=== PATIENT | male | born 1955 | race Caucasian/White ===

== ENCOUNTER 2017-07-17 12:33 | Emergency (ER) | payer OTHER ==
[2017-07-17 14:43] VITALS: RESP 18
--- NOTE | 2017-07-17 15:33 | C.PDOC ---
History Of Present Illness 62 yr old male presents to the ER for evaluation of constant left facial droop for the past 4 days. Patient denies any associated symptoms, no chest pain, SOB , nausea, vomiting, headache or dizziness. Time Seen by Provider: 07/17/17 15:04 Chief Complaint (Nursing): Weakness/Neurological Deficit History Per: Patient History/Exam Limitations: no limitations Onset/Duration Of Symptoms: Days (4) Current Symptoms Are (Timing): Still Present Past Medical History Reviewed: Historical Data, Nursing Documentation, Vital Signs Vital Signs: Last Vital Signs Temp 97.9 F 07/17/17 14:39 Pulse 105 H 07/17/17 14:39 Resp 18 07/17/17 14:39 BP 127/88 07/17/17 14:39 Pulse Ox 100 07/17/17 16:28 - Medical History PMH: HTN Family History: States: No Known Family Hx - Social History Hx Alcohol Use: No Hx Substance Use: No - Immunization History Hx Tetanus Toxoid Vaccination: No Hx Influenza Vaccination: No Hx Pneumococcal Vaccination: No Review Of Systems Except As Marked, All Systems Reviewed And Found Negative. Constitutional: Positive for: Other (+ left facial droop) Cardiovascular: Negative for: Chest Pain Respiratory: Negative for: Shortness of Breath Gastrointestinal: Negative for: Nausea, Vomiting Neurological: Negative for: Change in Speech, Headache, Dizziness Physical Exam - Physical Exam Appears: Non-toxic, No Acute Distress Skin: Warm, Dry Head: Normacephalic Oral Mucosa: Moist Cardiovascular: Rhythm Regular, No Murmur Respiratory: Normal Breath Sounds, No Rales, No Rhonchi, No Stridor, No Wheezing Gastrointestinal/Abdominal: Normal Exam, Soft, No Tenderness, No Guarding, No Rebound Extremity: Normal ROM, No Swelling Neurological/Psych: Oriented x3, Normal Speech, Normal Motor, Other (flattening of forehead, incomplete closure of left periorbital, flattening of left face) ED Course And Treatment O2 Sat by Pulse Oximetry: 100 (RA) Pulse Ox Interpretation: Normal NIHSS Stroke Scale 2 - Date/Time Evaluation Performed Date Performed: 07/17/17 When Was NIHSS Performed: Baseline - How Severe is the Stroke Level of Consciousness: 0=Alert LOC to Questions: 0=Both comments correct LOC to commands: 0=Obeys both correctly Best Gaze: 0=Normal Visual: 0=No visual loss Facial: 1=Minor asymmetry Motor Arm - Left: 0=No drift Motor Arm - Right: 0=No drift Motor Leg - Left: 0=No drift Motor Leg - Right: 0=No drift Limb Ataxia: 0=Absent Sensory: 0=Normal Best Language: 0=No aphasia Dysarthia: 0=Normal articulation Extinction & Inattention (Neglect): 0=Normal, no object Score: 1 Progress - Data Reviewed Data Reviewed: Lab, Diagnostic imaging rTPA Inclusion/Exclusion - Refusal of Treatment Patient Refused Treatment: No - Inclusion Criteria for Altepase Patient is 18 years or Older: Yes The Clinical Diagnosis of Ischemic Stroke That is Causing a Potentially Disabling Neurological Deficit: Yes Time of Onset is Well Established to be Less Than 270 Minute Before Treatment Would Begin: No Risk/Benefit Discussed With Patient/Family Member Present: No - Exclusion Criteria for Altepase Uncontrolled Hypertension at Time of Treatment (Systolic BP above 185 or Diastolic BP above 110 mmHg): No Active Internal Bleeding: No Known Bleeding Diathesis Including but Not Limited to: Platelets Below 100,000/ mm,PTT Above 40 sec After Heparin Use, Current Use of Oral Anitcoagulant With INR Greater Than 1.7 or PT Greater Than 15 secs: No Evidence of an Intracranial Hemorrhage: No Evidence of Major Acute Infarct With Signs Greater Than 1/3 MCA Territory: No Suspicion of Subarachnoid Hemorrhage on Pretreatment Evaluation Even if CT Head Negative For Hemorrhage: No - Warning to TPA With Conditions Following Conditions Weighed Against Anticipated Benefit: Yes Condition: Stroke Serevity Too Mild Medical Decision Making Medical Decision Making: PLAN: * EKG SX ONSET >72 HOURS, NO INDICATION FOR ANTIVIRAL OR STEROID USE Disposition Counseled Patient/Family Regarding: Studies Performed, Diagnosis, Need For Followup - Disposition Referrals: [facility] [Outside] [facility] [Outside] Disposition: HOME/ ROUTINE Disposition Time: 17:17 Condition: GOOD Instructions: Tristan Palsy (ED) Forms: [facility] ([place]), Work Excuse Print Language: KHMER - Clinical Impression Clinical Impression: Tristan palsy - Scribe Statement The provider has reviewed the documentation as recorded by the Jian Kan Provider Attestation: All medical record entries made by the Samibnan were at my direction and personally dictated by me. I have reviewed the chart and agree that the record accurately reflects my personal performance of the history, physical exam, medical decision making, and the department course for this patient. I have also personally directed, reviewed, and agree with the discharge instructions and disposition.
--- NOTE | 2017-07-17 17:05 | CT ---
PROCEDURE: CT HEAD WITHOUT CONTRAST. HISTORY: L FACIAL DROOP COMPARISON: None available. TECHNIQUE: Axial computed tomography images were obtained through the head/brain without intravenous contrast. Radiation dose: Total exam DLP = 1158.97 mGy-cm. This CT exam was performed using one or more of the following dose reduction techniques: Automated exposure control, adjustment of the mA and/or kV according to patient size, and/or use of iterative reconstruction technique. FINDINGS: HEMORRHAGE: No intracranial hemorrhage. BRAIN: No mass effect or edema. Intracranial atherosclerosis. Scattered periventricular and subcortical white matter hypodensities, which are nonspecific, but often seen with chronic microvascular ischemic disease. Please note that MRI with diffusion imaging is more sensitive in the detection of acute ischemic event. VENTRICLES: No hydrocephalus. CALVARIUM: Unremarkable. PARANASAL SINUSES: Unremarkable as visualized. No significant inflammatory changes. MASTOID AIR CELLS: Unremarkable as visualized. No inflammatory changes. OTHER FINDINGS: None. IMPRESSION: Nonspecific white matter changes as above.
[2017-07-17 17:41] LABS: BASO % 0.6 % (0.0-2.0); EOS # 0.1 K/uL (0.0-0.7); EOS % 1.7 % (0.0-4.0); LYMPH # 3.3 K/uL (1.0-4.3); LYMPH % 43.2 % (20.0-40.0); MEAN CELL VOLUME 82.7 fL (80.0-94.0); MEAN CORPUSCULAR HEMOGLOBIN 27.3 pg (27.0-31.0); MEAN CORPUSCULAR HGB CONC 32.9 g/dL (33.0-37.0); MEAN PLATELET VOLUME 8.3 fL (7.2-11.7); MONO # 0.6 K/uL (0.0-0.8); MONO % 8.4 % (0.0-10.0); NEUT # 3.5 K/uL (1.8-7.0); NEUT % 46.1 % (50.0-75.0); NRBC % 0.1 % (0.0-2.0); RBC 5.51 Mil/uL (4.40-5.90); RED CELL DISTRIBUTION WIDTH 13.5 % (11.5-14.5); WHITE BLOOD COUNT 7.6 K/uL (4.8-10.8)
[2017-07-17 17:42] VITALS: BP 123/82; PULSE 84; TEMP 98.3; O2SAT 99
[2017-07-17 18:03] LABS: BLOOD UREA NITROGEN 19 mg/dL (9-20); CALCIUM 8.7 mg/dl (8.6-10.4); GFR AFRICAN-AMERICAN > 60; GFR NON-AFRICAN AMERICAN > 60
--- NOTE | 2017-07-19 16:30 | CARD ---
APPROVED REPORT EKG Measurement Heart [id number] <Conclusion> Normal sinus rhythm Left axis deviation T wave abnormality, consider lateral ischemia Abnormal ECG
== END 2017-07-17 17:52 | disposition home or self-care (01) ==
LOC: C.ER 12:33
DX: G51.0 Bell's palsy (principal)

== ENCOUNTER 2018-01-13 07:56 | Observation (INO) | payer MEDICAID ==
--- NOTE | 2018-01-13 08:34 | C.PDOC ---
History Of Present Illness 62 y/o male, with past medical history of HTN, presents to ED for evaluation of shortness of breath, and chest pressure when laying back which started last night. Notes he was unable to sleep last night. He reports dyspnea on exertion for the last 2 days. He denies smoking or drinking. Denies fever, nausea, vomiting, or other complaints at this time. Time Seen by Provider: 01/13/18 08:00 Chief Complaint (Nursing): Shortness Of Breath History Per: Patient History/Exam Limitations: no limitations Onset/Duration Of Symptoms: Days Current Symptoms Are (Timing): Still Present Exacerbating Factor(s): Exertion, Laying Flat Associated Symptoms: denies: Bloody Cough, Productive Cough, Heart Racing, Leg/ Calf Pain, Dizziness, Light-headedness Recent travel outside of the [place]: No Additional History Per: Patient Past Medical History Reviewed: Historical Data, Nursing Documentation, Vital Signs Vital Signs: Last Vital Signs Temp 978 F H 01/13/18 08:06 Pulse 96 H 01/13/18 10:27 Resp 18 01/13/18 10:27 BP 127/92 H 01/13/18 10:27 Pulse Ox 100 01/13/18 10:57 - Medical History PMH: HTN Family History: States: Unknown Family Hx - Social History Hx Alcohol Use: No Hx Substance Use: No - Immunization History Hx Tetanus Toxoid Vaccination: No Hx Influenza Vaccination: No Hx Pneumococcal Vaccination: No Review Of Systems Except As Marked, All Systems Reviewed And Found Negative. Constitutional: Negative for: Fever, Chills Cardiovascular: Positive for: Chest Pain. Negative for: Palpitations, Light Headedness Respiratory: Positive for: Shortness of Breath, SOB with Excertion. Negative for: Cough Gastrointestinal: Negative for: Nausea, Vomiting, Abdominal Pain Neurological: Negative for: Headache, Dizziness Physical Exam - Physical Exam Appears: Non-toxic, No Acute Distress Skin: Normal Color, Warm, Dry Head: Atraumatic, Normacephalic Eye(s): bilateral: Normal Inspection Oral Mucosa: Moist Neck: Normal ROM, Supple Chest: Symmetrical, No Tenderness Cardiovascular: Rhythm Regular, No Murmur Respiratory: Normal Breath Sounds, No Rales, No Rhonchi, No Wheezing Gastrointestinal/Abdominal: Soft, No Tenderness, No Distention Extremity: Normal ROM, Pedal Edema (+1 pitting edema bilaterally), No Deformity Neurological/Psych: Oriented x3, Normal Speech ED Course And Treatment - Laboratory Results Result Diagrams: 01/13/18 09:00 01/13/18 09:00 O2 Sat by Pulse Oximetry: 100 (RA) Pulse Ox Interpretation: Normal Medical Decision Making Medical Decision Making: Plan: Blood work EKG CXR Chest CT Aspirin, Lasix Disposition Discussed With Dr.: Maximo Solis Counseled Patient/Family Regarding: Studies Performed, Diagnosis - Disposition Disposition: HOSPITALIZED Disposition Time: 10:06 Condition: GUARDED - Clinical Impression Clinical Impression: Dyspnea, Chronic congestive heart failure, Orthopnea, TARANGO (dyspnea on exertion) - Scribe Statement The provider has reviewed the documentation as recorded by the Scribe KP All medical record entries made by the Scribe were at my direction and personally dictated by me. I have reviewed the chart and agree that the record accurately reflects my personal performance of the history, physical exam, medical decision making, and the department course for this patient. I have also personally directed, reviewed, and agree with the discharge instructions and disposition. Decision To Admit - Pt Status Changed To: Hospital Disposition Of: Observation - . Bed Request Type: Telemetry Admitting Physician: Maximo Solis Patient Diagnosis: Dyspnea, Chronic congestive heart failure, Orthopnea, TARANGO (dyspnea on exertion)
[2018-01-13 09:14] LABS: BASO % 0.6 % (0.0-2.0); EOS # 0.1 K/uL (0.0-0.7); EOS % 1.3 % (0.0-4.0); HEMOGLOBIN 14.5 g/dL (12.0-18.0); LYMPH # 2.1 K/uL (1.0-4.3); LYMPH % 35.7 % (20.0-40.0); MEAN CELL VOLUME 83.6 fL (80.0-94.0); MEAN CORPUSCULAR HEMOGLOBIN 27.6 pg (27.0-31.0); MEAN PLATELET VOLUME 8.8 fL (7.2-11.7); MONO # 0.6 K/uL (0.0-0.8); MONO % 9.4 % (0.0-10.0); NEUT # 3.2 K/uL (1.8-7.0); NRBC % 0.1 % (0.0-2.0); RBC 5.24 Mil/uL (4.40-5.90); RED CELL DISTRIBUTION WIDTH 14.1 % (11.5-14.5)
[2018-01-13 09:27] LABS: ALB/GLOB RATIO 1.2 (1.0-2.1); ALBUMIN 3.6 g/dL (3.5-5.0); ALT/SGPT 93 U/L (21-72); AST/SGOT 72 U/L (17-59); BLOOD UREA NITROGEN 20 mg/dL (9-20); CALCIUM 9.2 mg/dl (8.6-10.4); GFR AFRICAN-AMERICAN > 60; GFR NON-AFRICAN AMERICAN > 60
[2018-01-13 09:33] LABS: B-TYPE NATRIURETIC PEPTIDE 1500 pg/mL (0-900)
[2018-01-13 10:10] LABS: BARBITURATES, UR NEGATIVE (NEGATIVE); BENZODIAZEPINES, UR NEGATIVE (NEGATIVE); OPIATES, UR NEGATIVE (NEGATIVE); PHENCYCLIDINE, UR NEGATIVE (NEGATIVE)
[2018-01-13] MEDS ORDERED: Iodixanol 320 mg/ml 150 ml Bottle IV ONE (11:19)
--- NOTE | 2018-01-13 12:08 | CT ---
Date of service: 01/13/2018 PROCEDURE: CT Chest with contrast HISTORY: sob, abnormal cxr COMPARISON: None available. TECHNIQUE: Contiguous axial images were obtained through the chest with intravenous contrast enhancement. Sagittal and coronal reconstructions were performed. IV contrast: 100 mL Visipaque 320 intravenously. Radiation dose (DLP): 314.6 mGy-cm. This CT exam was performed using one or more of the following dose reduction techniques: Automated exposure control, adjustment of the mA and/or kV according to patient size, and/or use of iterative reconstruction technique. FINDINGS: LUNGS: Moderate pulmonary vascular congestion is noted. Partial collapse of the lower lobes due to pleural effusions is also noted. There is pleural base opacity at the anterior aspect of the right lung upper lobe noted associated with adjacent pleural thickening. MEDIASTINUM: Unremarkable thoracic aorta. No aneurysm or dissection. The heart is moderately enlarged. The main pulmonary artery is mildly enlarged. Mild precarinal and right paratracheal lymphadenopathy seen. Mildly dilated esophagus demonstrate mild wall thickening. PLEURA: Moderate right and small left pleural effusion is noted. BONES: No fracture. No destructive lesion. UPPER ABDOMEN: Grossly unremarkable. OTHER FINDINGS: None. IMPRESSION: Cardiomegaly. Moderate right and small left pleural effusions. Moderate pulmonary vascular congestion. Small pleural base opacity at the anterior aspect of the right lung upper lobe may represent a sequela of prior infection or inflammatory process. The possibility of acute pathology is less likely but not totally excluded. Follow-up study is recommended. Mild right-sided mediastinal lymphadenopathy.
[2018-01-13] MEDS: Metoprolol Succinate 12.5 mg XL Tab PO SCH (14:57)
--- NOTE | 2018-01-13 19:55 | CP.PCM.CON ---
History of Present Illness - History of Present Illness History of Present Illness: 62 year old lamar with type II DM, HTN presented with atypical pain, SOB, TARANGO admitted for elevated BNP, EKG sinus, lateral changes, VPB. neg TNI, f/u with Echo, no OH, needs EST as out pt, treatment for CHF, ? LV diastolic V/S systolic, acute over chronic Review of Systems - Review of Systems Systems not reviewed;Unavailable: Acuity of Condition - Constitutional Constitutional: Anorexia, Weakness - EENT Eyes: absent: Discharge Ears: absent: Ear Discharge, Dizziness Nose/Mouth/Throat: absent: Epistaxis - Cardiovascular Cardiovascular: Dyspnea, Edema, Palpitations. absent: Acrocyanosis, Chest Pain , Claudication, Diaphoresis, Syncope - Respiratory Respiratory: Dyspnea. absent: Cough, Hemoptysis - Gastrointestinal Gastrointestinal: absent: Abdominal Pain, Diarrhea, Nausea, Vomiting - Genitourinary Genitourinary: absent: Change in Urinary Stream Past Patient History - Past Social History Smoking Status: Never Smoked - CARDIAC Hx Hypertension: Yes - ENDOCRINE/METABOLIC Hx Diabetes Mellitus Type 1: Yes - PSYCHIATRIC Hx Substance Use: No - SURGICAL HISTORY Hx Surgeries: No - ANESTHESIA Hx Anesthesia: No Hx Anesthesia Reactions: No Meds Home Medications: Home Medication List Medication Instructions Recorded Confirmed Type Furosemide [Lasix] 40 mg PO DAILY #30 tab 01/15/18 Rx Lisinopril [Zestril] 2.5 mg PO DAILY #30 tab 01/15/18 Rx Metoprolol Succinate XL [Toprol XL] 12.5 mg PO DAILY #30 tab 01/15/18 Rx Rosuvastatin Calcium [Crestor] 5 mg PO HS #30 tab 01/15/18 Rx metFORMIN [glucOPHAGE] 500 mg PO BID #60 tab 01/15/18 Rx Allergies/Adverse Reactions: Allergies Allergy/AdvReac Type Severity Reaction Status Date / Time No Known Allergies Allergy Verified 01/13/18 08:08 - Medications Medications: Current Medications Enoxaparin Sodium (Lovenox) 40 mg SC DAILY [facility] Furosemide (Lasix) 40 mg IVP DAILY [facility] Lisinopril (Zestril) 2.5 mg PO DAILY [facility] Last Admin: 01/13/18 14:58 Dose: 2.5 mg Metformin HCl (Glucophage) 500 mg PO BID [facility] Last Admin: 01/13/18 18:08 Dose: 500 mg Metoprolol Succinate (Toprol Xl) 12.5 mg PO DAILY [facility] Last Admin: 01/13/18 14:57 Dose: 12.5 mg Rosuvastatin Calcium (Crestor) 5 mg PO [facility] Physical Exam - Constitutional Appears: Non-toxic - Head Exam Head Exam: ATRAUMATIC - Eye Exam Eye Exam: EOMI - ENT Exam ENT Exam: Mucous Membranes Moist - Neck Exam Neck exam: Negative for: Lymphadenopathy, Thyromegaly - Respiratory Exam Respiratory Exam: Clear to Auscultation Bilateral. absent: Rales - Cardiovascular Exam Cardiovascular Exam: REGULAR RHYTHM, Systolic Murmur - GI/Abdominal Exam GI & Abdominal Exam: Normal Bowel Sounds. absent: Organomegaly - Rectal Exam Rectal Exam: Deferred - Extremities Exam Extremities exam: Positive for: normal capillary refill. Negative for: calf tenderness - Neurological Exam Neurological exam: Alert, Oriented x3 - Psychiatric Exam Psychiatric exam: Normal Mood Results - Vital Signs Recent Vital Signs: Last Vital Signs Temp 97.7 F 01/13/18 19:15 Pulse 98 H 01/13/18 19:15 Resp 18 01/13/18 19:15 BP 122/91 H 01/13/18 19:15 Pulse Ox 99 01/13/18 19:15 - Labs Result Diagrams: 01/13/18 09:00 01/13/18 09:00 Labs: Laboratory Results - last 24 hr 01/13/18 01/13/18 01/13/18 09:00 09:00 09:00 WBC 6.0 RBC 5.24 Hgb 14.5 Hct 43.9 MCV 83.6 MCH 27.6 MCHC 33.0 RDW 14.1 Plt Count 222 MPV 8.8 Neut % (Auto) 53.0 Lymph % (Auto) 35.7 Rains % (Auto) 9.4 Eos % (Auto) 1.3 Baso % (Auto) 0.6 Neut # (Auto) 3.2 Lymph # (Auto) 2.1 Rains # (Auto) 0.6 Eos # (Auto) 0.1 Baso # (Auto) 0.0 D-Dimer, Quantitative < 200 Sodium 141 Potassium 4.2 Chloride 105 Carbon Dioxide 24 Anion Gap 17 BUN 20 Creatinine 1.0 Est GFR ( Amer) > 60 Est GFR (Non-Af Amer) > 60 Random Glucose 187 H Calcium 9.2 Total Bilirubin 0.4 AST 72 H ALT 93 H Alkaline Phosphatase 84 Troponin I 0.0300 NT-Pro-B Natriuret Pep 1500 H Total Protein 6.7 Albumin 3.6 Globulin 3.0 Albumin/Globulin Ratio 1.2 Urine Opiates Screen Urine Methadone Screen Ur Barbiturates Screen Ur Phencyclidine Scrn Ur Amphetamines Screen U Benzodiazepines Scrn U Oth Cocaine Metabols U Cannabinoids Screen 01/13/18 01/13/18 09:34 15:58 WBC RBC Hgb Hct MCV MCH MCHC RDW Plt Count MPV Neut % (Auto) Lymph % (Auto) Rains % (Auto) Eos % (Auto) Baso % (Auto) Neut # (Auto) Lymph # (Auto) Rains # (Auto) Eos # (Auto) Baso # (Auto) D-Dimer, Quantitative Sodium Potassium Chloride Carbon Dioxide Anion Gap BUN Creatinine Est GFR ( Amer) Est GFR (Non-Af Amer) Random Glucose Calcium Total Bilirubin AST ALT Alkaline Phosphatase Troponin I 0.0250 NT-Pro-B Natriuret Pep Total Protein Albumin Globulin Albumin/Globulin Ratio Urine Opiates Screen Negative Urine Methadone Screen Negative Ur Barbiturates Screen Negative Ur Phencyclidine Scrn Negative Ur Amphetamines Screen Negative U Benzodiazepines Scrn Negative U Oth Cocaine Metabols Negative U Cannabinoids Screen Negative Assessment & Plan (1) New onset of congestive heart failure Status: Acute (2) Type 2 diabetes mellitus Status: Acute
--- NOTE | 2018-01-13 21:20 | RAD ---
Date of service: 01/13/2018 PROCEDURE: CHEST RADIOGRAPH, 1 VIEW HISTORY: chest pain COMPARISON: None available. FINDINGS: LUNGS: [id number] pulmonary vascular congestion is noted. PLEURA: No pneumothorax or pleural fluid seen. CARDIOVASCULAR: Cardiomegaly is noted. OSSEOUS STRUCTURES: No significant abnormalities. VISUALIZED UPPER ABDOMEN: Normal. OTHER FINDINGS: None. IMPRESSION: Cardiomegaly and moderate pulmonary vascular congestion.
[2018-01-14] MEDS: Metoprolol Succinate 12.5 mg XL Tab PO SCH (10:09)
[2018-01-14] MEDS: Enoxaparin 40 mg Syringe SC SCH (10:09)
[2018-01-14] MEDS ORDERED: Enoxaparin 40 mg Syringe SC SCH (11:15)
--- NOTE | 2018-01-14 21:54 | CP.PCM.HP ---
History of Present Illness - History of Present Illness History of Present Illness: CC: Chest pain 62 year old [place] male with type II DM, HTN, non smoker complaint with diet , medication and follow up presented with atypical pain, chest pain is prseent since 3 weeks, substernal presssure like, worse with exertyion, not associated with dyspnea, orthopnea ,SOB, TARANGO admitted for elevated BNP, EKG sinus, lateral changes, VPB. neg TNI, f/u with Echo, no SC, needs EST as out pt, treatment for CHF, ? LV diastolic, acute over chronic Present on Admission - Present on Admission Any Indicators Present on Admission: Yes Review of Systems - Review of Systems Systems not reviewed;Unavailable: Acuity of Condition - Constitutional Constitutional: Fatigue, Malaise, Weakness - EENT Eyes: absent: As Per HPI, Blind Spots, Blurred Vision, Change in Vision, Decreased Night Vision, Diplopia, Discharge, Dry Eye, Exophthalmos, Floaters, Irritation, Itchy Eyes, Loss of Peripheral Vision, Pain, Photophobia, Requires Corrective Lenses, Sees Flashes, Spots in Vision, Tunnel Vision, Other Visual Disturbances, Loss of Vision, Other Ears: absent: As Per HPI, Decreased Hearing, Ear Discharge, Ear Pain, Tinnitus, Abnormal Hearing, Disequilibrium, Dizziness, Other Nose/Mouth/Throat: absent: As Per HPI, Epistaxis, Nasal Congestion, Nasal Discharge, Nasal Obstruction, Nasal Trauma, Nose Pain, Post Nasal Drip, Sinus Pain, Sinus Pressure, Bleeding Gums, Change in Voice, Dental Pain, Dry Mouth, Dysphagia, Halitosis, Hoarsness, Lip Swelling, Mouth Lesions, Mouth Pain, Odynophagia, Sore Throat, Throat Swelling, Tongue Swelling, Facial Pain, Neck Pain, Neck Mass, Other - Cardiovascular Cardiovascular: Chest Pain, Chest Pain with Activity, Dyspnea. absent: As Per HPI, Acrocyanosis, Chest Pain at Rest, Claudication, Diaphoresis, Dyspnea on Exertion, Edema, Irregular Heart Rhythm, Pain Radiating to Arm/Neck/Jaw, Leg Edema, Leg Ulcers, Lightheadedness, Orthopnea, Palpitations, Paroxysmal Nocturnal Dyspnea, Pedal Edema, Radiating Pain, Rapid Heart Rate, Slow Heart Rate, Syncope, Other - Respiratory Respiratory: Cough, Dyspnea, Dyspnea on Exertion, Chest Congestion - Gastrointestinal Gastrointestinal: absent: As Per HPI, Abdominal Pain, Belching, Bloating, Change in Bowel Habits, Change in Stool Character, Coffee Ground Emesis, Constipation, Cramping, Diarrhea, Dyspepsia, Dysphagia, Early Satiety, Excessive Flatus, Fecal Incontinence, Heartburn, Hematemesis, Hematochezia, Loose Stools, Melena, Nausea, Odynophagia, Temesmus, Vomiting, Other - Genitourinary Genitourinary: absent: As Per HPI, Change in Urinary Stream, Difficulty Urinating, Dysuria, Flank Pain, Hematuria, Pyuria, Nocturia, Urinary Incontinence, Urinary Frequency, Urinary Hesitance, Urinary Urgency, Voiding Freq/Small Amts, Freq UTI, Hx Renal/Bladder Calculi, Hx /Renal Surgery, Bladder Distension, Other Past Patient History - Past Social History Smoking Status: Never Smoked - CARDIAC Hx Hypertension: Yes - ENDOCRINE/METABOLIC Hx Diabetes Mellitus Type 1: Yes - PSYCHIATRIC Hx Substance Use: No - SURGICAL HISTORY Hx Surgeries: No - ANESTHESIA Hx Anesthesia: No Hx Anesthesia Reactions: No Meds Allergies/Adverse Reactions: Allergies Allergy/AdvReac Type Severity Reaction Status Date / Time No Known Allergies Allergy Verified 01/13/18 08:08 Physical Exam - Constitutional Appears: No Acute Distress - Head Exam Head Exam: ATRAUMATIC, NORMAL INSPECTION, NORMOCEPHALIC - Eye Exam Eye Exam: EOMI, Normal appearance, PERRL Pupil Exam: NORMAL ACCOMODATION, PERRL - ENT Exam ENT Exam: Mucous Membranes Moist, Normal Exam - Respiratory Exam Respiratory Exam: Decreased Breath Sounds, Rales, NORMAL BREATHING PATTERN - Cardiovascular Exam Cardiovascular Exam: REGULAR RHYTHM - GI/Abdominal Exam GI & Abdominal Exam: Normal Bowel Sounds, Soft. absent: Tenderness Results - Vital Signs Recent Vital Signs: Last Vital Signs Temp 97.5 F L 01/14/18 15:00 Pulse 90 01/14/18 15:00 Resp 20 01/14/18 15:00 BP 114/77 01/14/18 15:00 Pulse Ox 95 01/14/18 15:00 - Labs Result Diagrams: 01/13/18 09:00 01/13/18 09:00 Labs: Laboratory Results - last 24 hr 01/14/18 00:27 Troponin I 0.0340 Assessment & Plan (1) Chest pain Assessment and Plan: WORSE ON EXERTION RE;EIVED BY REST Status: Acute (2) Type 2 diabetes mellitus Status: Acute (3) HTN (hypertension) Status: Acute (4) New onset of congestive heart failure Status: Acute
--- NOTE | 2018-01-14 22:04 | CP.PCM.PN ---
Subjective - Date & Time of Evaluation Date of Evaluation: 01/14/18 Time of Evaluation: 19:40 - Subjective Subjective: pT SEEN AND EXAMINED AT BEDSIDE Objective - Vital Signs/Intake and Output Vital Signs (last 24 hours): Temp Pulse Resp BP Pulse Ox 97.5 F L 90 20 114/77 95 01/14/18 15:00 01/14/18 15:00 01/14/18 15:00 01/14/18 15:00 01/14/18 15:00 - Medications Medications: Current Medications Enoxaparin Sodium (Lovenox) 40 mg SC DAILY [facility] Last Admin: 01/14/18 10:09 Dose: 40 mg Furosemide (Lasix) 40 mg IVP DAILY [facility] Last Admin: 01/14/18 10:08 Dose: 40 mg Lisinopril (Zestril) 2.5 mg PO DAILY [facility] Last Admin: 01/14/18 10:09 Dose: 2.5 mg Metformin HCl (Glucophage) 500 mg PO BID [facility] Last Admin: 01/14/18 17:34 Dose: 500 mg Metoprolol Succinate (Toprol Xl) 12.5 mg PO DAILY [facility] Last Admin: 01/14/18 10:09 Dose: 12.5 mg Rosuvastatin Calcium (Crestor) 5 mg PO HS [facility] Last Admin: 01/14/18 21:28 Dose: 5 mg - Labs Labs: 01/13/18 09:00 01/13/18 09:00 Assessment and Plan (1) Chest pain Status: Acute (2) Type 2 diabetes mellitus Status: Acute (3) HTN (hypertension) Status: Acute (4) New onset of congestive heart failure Status: Acute
[2018-01-15] MEDS: Metoprolol Succinate 12.5 mg XL Tab PO SCH (10:03)
[2018-01-15] MEDS: Enoxaparin 40 mg Syringe SC SCH (10:03)
--- NOTE | 2018-01-15 12:45 | CP.PCM.PN ---
Subjective - Date & Time of Evaluation Date of Evaluation: 01/15/18 Time of Evaluation: 13:00 - Subjective Subjective: Less shortness of breath, echo with ischemic cardiomyopathy and ejection fraction less than 20%. He needs beta jw HEVER inhibitor and Lasix in addition to ischemic workup that can be done as outpatient, probably start with stress test. Significant moderate mitral regurgitation and moderate aortic insufficiency Objective - Vital Signs/Intake and Output Vital Signs (last 24 hours): Temp Pulse Resp BP Pulse Ox 97.6 F 84 18 123/85 100 01/15/18 07:15 01/15/18 07:45 01/15/18 07:15 01/15/18 10:04 01/15/18 07:15 Intake and Output: 01/15/18 01/15/18 06:59 18:59 Intake Total 10 Balance 10 - Medications Medications: Current Medications Enoxaparin Sodium (Lovenox) 40 mg SC DAILY [facility] Last Admin: 01/15/18 10:03 Dose: 40 mg Furosemide (Lasix) 40 mg IVP DAILY [facility] Last Admin: 01/15/18 10:04 Dose: 40 mg Lisinopril (Zestril) 2.5 mg PO DAILY [facility] Last Admin: 01/15/18 10:03 Dose: 2.5 mg Metformin HCl (Glucophage) 500 mg PO BID [facility] Last Admin: 01/15/18 10:02 Dose: 500 mg Metoprolol Succinate (Toprol Xl) 12.5 mg PO DAILY [facility] Last Admin: 01/15/18 10:03 Dose: 12.5 mg Rosuvastatin Calcium (Crestor) 5 mg PO HS [facility] Last Admin: 01/14/18 21:28 Dose: 5 mg - Labs Labs: 01/13/18 09:00 01/13/18 09:00 - Constitutional Appears: Non-toxic - Head Exam Head Exam: ATRAUMATIC - Eye Exam Eye Exam: EOMI - ENT Exam ENT Exam: Mucous Membranes Moist - Neck Exam Neck Exam: absent: Lymphadenopathy, Thyromegaly - Respiratory Exam Respiratory Exam: Clear to Ausculation Bilateral. absent: Rales - Cardiovascular Exam Cardiovascular Exam: REGULAR RHYTHM, Murmur - GI/Abdominal Exam GI & Abdominal Exam: Normal Bowel Sounds. absent: Organomegaly - Rectal Exam Rectal Exam: Deferred - Extremities Exam Extremities Exam: Normal Capillary Refill. absent: Calf Tenderness - Neurological Exam Neurological Exam: Alert, Oriented x3 - Psychiatric Exam Psychiatric exam: Normal Mood - Skin Skin Exam: Dry Assessment and Plan (1) New onset of congestive heart failure Assessment & Plan: acute LV systolic failure Status: Acute (2) Type 2 diabetes mellitus Status: Acute
[2018-01-15 15:58] VITALS: BP 106/60; RESP 20; TEMP 97.8; O2SAT 99
--- NOTE | 2018-01-15 16:36 | CP.PCM.PN ---
Subjective - Date & Time of Evaluation Date of Evaluation: 01/15/18 Time of Evaluation: 16:36 - Subjective Subjective: - SEGUIMIENTO CON EL DR. DONOVAN EN LA OFICINA EN EL PLAZO DE 5-7 DENNY --- LLAME A LA OFICINA PARA OWEN DESIGNADO EL HORARIO. -CONTINUAR LOS MEDICAMENTOS EXACTAMENTE EUNICE SE PRESCRIBE: 1) LASIX 40 MG (PLDORA DE AGUA) --- PHILIP 1 TABLETA POR LA BOCA HARINI VEZ AL DA. 2) LISINOPRIL 2.5 MG (PARA HAND CORAZN) --- TOME 1 TABLETA POR BOCA HARINI VEZ AL D A. 3) METOPROLOL XL 12.5 MG (PARA HAND CORAZN) --- TOME 1 TABLETA POR BOCA HARINI VEZ AL DA. 4) METFORMIN 500 MG (PARA HAND DIABETES) --- TOME 1 TABLETA POR LA BOCA DOS VECES AL DA (ANTES DEL DESAYUNO Y ANTES DE LA DELIVERY CREW WORKER). 5) CRESTOR 5 MG (PARA HAND COLESTEROL) --- PHILIP 1 TABLETA POR LA BOCA A LA HORA. DARIAN HARINI VIRAJ PARA GUILHERME EL DR. FIGUEROA (CARDILOGO) EN LA OFICINA DENTRO DE 5-7 D --- LLAME A LA OFICINA PARA OWEN DESIGNADO EL HORARIO. -FOLLOW UP WITH DR. DONOVAN IN THE OFFICE WITHIN 5-7 DAYS---CALL THE OFFICE FOR APPOINTMENT TIME. -CONTINUE MEDICATIONS EXACTLY PRESCRIBED: 1) LASIX 40 MG (WATER PILL)---TAKE 1 TABLET BY MOUTH ONCE A DAY. 2) LISINOPRIL 2.5 MG (FOR YOUR HEART)---TAKE 1 TABLET BY MOUTH ONCE A DAY. 3) METOPROLOL XL 12.5 MG (FOR YOUR HEART)---TAKE 1 TABLET BY MOUTH ONCE A DAY. 4) METFORMIN 500 MG (FOR YOUR DIABETES)---TAKE 1 TABLET BY MOUTH TWICE A DAY ( BEFORE BREAKFAST AND BEFORE DINNER). 5) CRESTOR 5 MG (FOR YOUR CHOLESTEROL)---TAKE 1 TABLET BY MOUTH AT BEDTIME. -MAKE AN APPOINTMENT TO SEE DR. FIGUEROA (SOFTWARE TEST AUTOMATION ENGINEER) IN THE OFFICE WITHIN 5-7 DAYS---CALL THE OFFICE FOR APPOINTMENT TIME. Objective - Vital Signs/Intake and Output Vital Signs (last 24 hours): Temp Pulse Resp BP Pulse Ox 97.8 F 87 20 106/60 99 01/15/18 15:00 01/15/18 15:00 01/15/18 15:00 01/15/18 15:00 01/15/18 15:00 Intake and Output: 01/15/18 01/15/18 06:59 18:59 Intake Total 10 Balance 10 - Medications Medications: Current Medications Enoxaparin Sodium (Lovenox) 40 mg SC DAILY [facility] Last Admin: 01/15/18 10:03 Dose: 40 mg Furosemide (Lasix) 40 mg IVP DAILY [facility] Last Admin: 01/15/18 10:04 Dose: 40 mg Lisinopril (Zestril) 2.5 mg PO DAILY [facility] Last Admin: 01/15/18 10:03 Dose: 2.5 mg Metformin HCl (Glucophage) 500 mg PO BID [facility] Last Admin: 01/15/18 10:02 Dose: 500 mg Metoprolol Succinate (Toprol Xl) 12.5 mg PO DAILY [facility] Last Admin: 01/15/18 10:03 Dose: 12.5 mg Rosuvastatin Calcium (Crestor) 5 mg PO HS [facility] Last Admin: 01/14/18 21:28 Dose: 5 mg - Labs Labs: 01/13/18 09:00 01/13/18 09:00
[2018-01-15 16:59] VITALS: PULSE 84
--- NOTE | 2018-01-15 20:47 | CARD ---
APPROVED REPORT Date of service: 01/15/2018 EXAM: Two-dimensional and M-mode echocardiogram with Doppler and color Doppler. INDICATION Dyspnea Chest Pain Congestive Heart Failure RISK FACTORS Hypertension Diabetes 2D DIMENSIONS IVSd0.8 (0.7-1.1cm)LVDd6.8 (3.9-5.9cm) PWd0.8 (0.7-1.1cm)LVDs6.2 (2.5-4.0cm) FS (%) 9.6 %LVEF (%)20.4 (>50%) M-Mode DIMENSIONS RVDd1.91 (2.1-3.2cm)Left Atrium (MM)4.92 (2.5-4.0cm) IVSd0.73 (0.7-1.1cm)Aortic Root3.29 (2.2-3.7cm) LVDd6.94 (4.0-5.6cm)Aortic Cusp Exc.1.97 (1.5-2.0cm) PWd0.69 (0.7-1.1cm)FS (%) 11 % LVDs6.21 (2.0-3.8cm)LVEF (%)22 (>50%) Aortic Valve AI P 1/2 [id number] Mitral Valve MV E Yiqiuypd302.2cm/sMV A Zlhgocjw936.3cm/sE/A ratio1.3 PISA0.98 cm TDI E/Lateral E'0.0E/Medial E'0.0 Tricuspid Valve TR Peak [id number]/sTR Peak Gr.[id number] LEFT VENTRICLE The Left Ventricle is moderately dilated. There is normal left ventricular wall thickness. Left ventricle systolic function is severely impaired. The Ejection Fraction is 15-20%. There is global hypokinesis of the left ventricle. There is severe hypokinesis in the mid-inferolateral wall. Transmitral Doppler flow pattern is Grade II-pseudonormal filling dynamics. elevated LVEDP There is no ventricular septal defect visualized. RIGHT VENTRICLE The right ventricle is normal size. The right ventricular systolic function is normal. ATRIA The left atrium is moderately dilated. The right atrium size is normal. AORTIC VALVE The aortic valve is mildly sclerotic. The aortic valve is tri-cuspid. There is moderate aortic regurgitation. There is no aortic valvular stenosis. MITRAL VALVE The mitral valve leaflets are thickened. There is no evidence of mitral valve prolapse. Mitral regurgitation is moderate. ERO 0.4 cm2 TRICUSPID VALVE The tricuspid valve is normal in structure. There is trace to mild tricuspid regurgitation. Right ventricular systolic pressure is estimated at 30-40 mmHg. There is mild pulmonary hypertension. PULMONIC VALVE The pulmonic valve is not well visualized. There is trace to mild pulmonic valvular regurgitation. GREAT VESSELS The aortic root is normal in size. The ascending aorta is Mildly dilated. 3.9 cm The IVC is normal in size and collapses >50% with inspiration. PERICARDIAL EFFUSION There is no pericardial effusion. <Conclusion> Left ventricle systolic function is severely impaired. The Ejection Fraction is 15-20%. Transmitral Doppler flow pattern is Grade II-pseudonormal filling dynamics. elevated LVEDP There is moderate aortic regurgitation. Mitral regurgitation is moderate. ERO 0.4 cm2 There is mild pulmonary hypertension.
--- NOTE | 2018-01-15 20:49 | CP.PCM.DIS ---
Provider - Provider Date of Admission: 01/13/18 10:08 Attending physician: Maximo Donovan MD Diagnosis - Discharge Diagnosis (1) Chest pain Status: Acute (2) Type 2 diabetes mellitus Status: Acute (3) HTN (hypertension) Status: Acute (4) New onset of congestive heart failure Status: Acute Hospital Course - Lab Results Lab Results: Most Recent Lab Values WBC 6.0 K/uL (4.8-10.8) 01/13/18 09:00 RBC 5.24 Mil/uL (4.40-5.90) 01/13/18 09:00 Hgb 14.5 g/dL (12.0-18.0) 01/13/18 09:00 Hct 43.9 % (35.0-51.0) 01/13/18 09:00 MCV 83.6 fL (80.0-94.0) 01/13/18 09:00 MCH 27.6 pg (27.0-31.0) 01/13/18 09:00 MCHC 33.0 g/dL (33.0-37.0) 01/13/18 09:00 RDW 14.1 % (11.5-14.5) 01/13/18 09:00 Plt Count 222 K/uL (130-400) 01/13/18 09:00 MPV 8.8 fL (7.2-11.7) 01/13/18 09:00 Neut % (Auto) 53.0 % (50.0-75.0) 01/13/18 09:00 Lymph % (Auto) 35.7 % (20.0-40.0) 01/13/18 09:00 Grand % (Auto) 9.4 % (0.0-10.0) 01/13/18 09:00 Eos % (Auto) 1.3 % (0.0-4.0) 01/13/18 09:00 Baso % (Auto) 0.6 % (0.0-2.0) 01/13/18 09:00 Neut # (Auto) 3.2 K/uL (1.8-7.0) 01/13/18 09:00 Lymph # (Auto) 2.1 K/uL (1.0-4.3) 01/13/18 09:00 Grand # (Auto) 0.6 K/uL (0.0-0.8) 01/13/18 09:00 Eos # (Auto) 0.1 K/uL (0.0-0.7) 01/13/18 09:00 Baso # (Auto) 0.0 K/uL (0.0-0.2) 01/13/18 09:00 D-Dimer, Quantitative < 200 ng/mlDDU (0-243) 01/13/18 09:00 Sodium 141 mmol/L (132-148) 01/13/18 09:00 Potassium 4.2 mmol/L (3.6-5.2) 01/13/18 09:00 Chloride 105 mmol/L (98-107) 01/13/18 09:00 Carbon Dioxide 24 mmol/L (22-30) 01/13/18 09:00 Anion Gap 17 (10-20) 01/13/18 09:00 BUN 20 mg/dL (9-20) 01/13/18 09:00 Creatinine 1.0 mg/dL (0.8-1.5) 01/13/18 09:00 Est GFR ( Amer) > 60 01/13/18 09:00 Est GFR (Non-Af Amer) > 60 01/13/18 09:00 POC Glucose (mg/dL) 137 mg/dL (65-110) H 01/15/18 16:22 Random Glucose 187 mg/dL (75-110) H 01/13/18 09:00 Calcium 9.2 mg/dl (8.6-10.4) 01/13/18 09:00 Total Bilirubin 0.4 mg/dL (0.2-1.3) 01/13/18 09:00 AST 72 U/L (17-59) H 01/13/18 09:00 ALT 93 U/L (21-72) H 01/13/18 09:00 Alkaline Phosphatase 84 U/L (38-126) 01/13/18 09:00 Troponin I 0.0340 ng/mL (0.00-0.120) 01/14/18 00:27 NT-Pro-B Natriuret Pep 1500 pg/mL (0-900) H 01/13/18 09:00 Total Protein 6.7 g/dL (6.3-8.3) 01/13/18 09:00 Albumin 3.6 g/dL (3.5-5.0) 01/13/18 09:00 Globulin 3.0 gm/dL (2.2-3.9) 01/13/18 09:00 Albumin/Globulin Ratio 1.2 (1.0-2.1) 01/13/18 09:00 Urine Opiates Screen Negative (NEGATIVE) 01/13/18 09:34 Urine Methadone Screen Negative (NEGATIVE) 01/13/18 09:34 Ur Barbiturates Screen Negative (NEGATIVE) 01/13/18 09:34 Ur Phencyclidine Scrn Negative (NEGATIVE) 01/13/18 09:34 Ur Amphetamines Screen Negative (NEGATIVE) 01/13/18 09:34 U Benzodiazepines Scrn Negative (NEGATIVE) 01/13/18 09:34 U Oth Cocaine Metabols Negative (NEGATIVE) 01/13/18 09:34 U Cannabinoids Screen Negative (NEGATIVE) 01/13/18 09:34 Discharge Exam - Head Exam Head Exam: ATRAUMATIC Discharge Plan - Discharge Medications Prescriptions: metFORMIN [glucOPHAGE] 500 mg PO BID 60 Days tab Furosemide [Lasix] 40 mg PO DAILY 30 Days tab Lisinopril 2.5 mg PO DAILY 30 Days tab Rosuvastatin Calcium 5 mg PO DAILY 30 Days tablet Metoprolol Succinate XL [Toprol XL] 12.5 mg PO DAILY 30 Days tab - Follow Up Plan Condition: GUARDED Disposition: HOME/ ROUTINE Instructions: Heart Healthy Diet, Heart Failure, Adult (DC), Shortness of Breath (Dyspnea) (DC), Chest Pain (DC), Furosemide, Lisinopril, Metformin, Metoprolol, Rosuvastatin Additional Instructions: - SEGUIMIENTO CON EL DR. DONOVAN EN LA OFICINA EN EL PLAZO DE 5-7 DENNY --- LLAME A LA OFICINA PARA OWEN DESIGNADO EL HORARIO. -CONTINUAR LOS MEDICAMENTOS EXACTAMENTE EUNICE SE PRESCRIBE: 1) LASIX 40 MG (PLDORA DE AGUA) --- PHILIP 1 TABLETA POR LA BOCA HARINI VEZ AL DA. 2) LISINOPRIL 2.5 MG (PARA HAND CORAZN) --- TOME 1 TABLETA POR BOCA HARINI VEZ AL D A. 3) METOPROLOL XL 12.5 MG (PARA HAND CORAZN) --- TOME 1 TABLETA POR BOCA HARINI VEZ AL DA. 4) METFORMIN 500 MG (PARA HAND DIABETES) --- TOME 1 TABLETA POR LA BOCA DOS VECES AL DA (ANTES DEL DESAYUNO Y ANTES DE LA EDMUND). 5) CRESTOR 5 MG (PARA HAND COLESTEROL) --- PHILIP 1 TABLETA POR LA BOCA A LA HORA. DARIAN HARINI VIRAJ PARA GUILHERME EL DR. FIGUEROA (CARDILOGO) EN LA OFICINA DENTRO DE 5-7 D --- LLAME A LA OFICINA PARA OWEN DESIGNADO EL HORARIO. -FOLLOW UP WITH DR. DONOVAN IN THE OFFICE WITHIN 5-7 DAYS---CALL THE OFFICE FOR APPOINTMENT TIME. -CONTINUE MEDICATIONS EXACTLY PRESCRIBED: 1) LASIX 40 MG (WATER PILL)---TAKE 1 TABLET BY MOUTH ONCE A DAY. 2) LISINOPRIL 2.5 MG (FOR YOUR HEART)---TAKE 1 TABLET BY MOUTH ONCE A DAY. 3) METOPROLOL XL 12.5 MG (FOR YOUR HEART)---TAKE 1 TABLET BY MOUTH ONCE A DAY. 4) METFORMIN 500 MG (FOR YOUR DIABETES)---TAKE 1 TABLET BY MOUTH TWICE A DAY ( BEFORE BREAKFAST AND BEFORE DINNER). 5) CRESTOR 5 MG (FOR YOUR CHOLESTEROL)---TAKE 1 TABLET BY MOUTH AT BEDTIME. -MAKE AN APPOINTMENT TO SEE DR. FIGUEROA (CAR UNLOADER) IN THE OFFICE WITHIN 5-7 DAYS---CALL THE OFFICE FOR APPOINTMENT TIME. Referrals: Maximo Donovan MD [Staff Provider] - James Figueroa MD [Staff Provider] -
--- NOTE | 2018-01-16 09:11 | DS ---
Copied To: Maximo Solis MD Attending MD: Maximo Solis MD ADMISSION DIAGNOSIS: Congestive heart failure. DISCHARGE DIAGNOSES: 1. New-onset congestive heart failure. 2. Type 2 diabetes. 3. Coronary artery disease by symptomatology. Pending workup. 4. Hypertension. HISTORY OF PRESENT ILLNESS: This is a 62-year-old male with history of type 2 diabetes, hypertension. He is compliant with diet, medication and followup. For the last few weeks, he has been developing orthopnea, paroxysmal nocturnal dyspnea, dyspnea on exertion and substernal chest pain. Brought in by exertion, relieved by rest and the patient was admitted to the floor. He was found to be in acute biventricular failure. He was diuresed. His CT chest was negative for pulmonary embolism. His blood pressure went down. He felt better. His orthopnea and dyspnea improved. His cardiac enzymes x3 were negative. He underwent cardiology eval and Dr. Whitlock cleared the patient for discharge today. The patient is feeling better. The patient denies any shortness of breath or chest pain now. He has been treated with aspirin, statin, Lasix. The patient's EF is less than 15-20% and the patient has moderate aortic regurgitation with elevated left ventricular end diastolic pressure, mitral regurgitation . The patient's condition is stable. He needs an outpatient followup. Condition upon discharge is stable. Maximo Solis MD
--- NOTE | 2018-01-16 19:01 | CP.PCM.PN ---
Subjective - Date & Time of Evaluation Date of Evaluation: 01/16/18 Time of Evaluation: 12:00 - Subjective Subjective: improved clinically, w/u as out pt ischemic w/u no arrhythmia, no syncope ICD in 8 wks as outpt on medical treatment Objective - Vital Signs/Intake and Output Vital Signs (last 24 hours): Temp Pulse Resp BP Pulse Ox 97.8 F 84 20 106/60 99 01/15/18 15:00 01/15/18 16:00 01/15/18 15:00 01/15/18 15:00 01/15/18 15:00 - Labs Labs: 01/13/18 09:00 01/13/18 09:00 - Constitutional Appears: Non-toxic - Head Exam Head Exam: ATRAUMATIC - Eye Exam Eye Exam: EOMI - ENT Exam ENT Exam: Mucous Membranes Moist - Neck Exam Neck Exam: absent: Lymphadenopathy, Thyromegaly - Respiratory Exam Respiratory Exam: Clear to Ausculation Bilateral. absent: Rales - Cardiovascular Exam Cardiovascular Exam: REGULAR RHYTHM, Murmur - GI/Abdominal Exam GI & Abdominal Exam: Normal Bowel Sounds. absent: Organomegaly - Rectal Exam Rectal Exam: Deferred - Extremities Exam Extremities Exam: Normal Capillary Refill. absent: Calf Tenderness - Neurological Exam Neurological Exam: Alert, Oriented x3 - Psychiatric Exam Psychiatric exam: Anxious - Skin Skin Exam: Dry Assessment and Plan (1) New onset of congestive heart failure Status: Acute (2) Type 2 diabetes mellitus Status: Acute
== END 2018-01-15 17:49 | disposition home or self-care (01) ==
LOC: C.ER 07:56 → C.9E 10:08 → C.6T 17:58
PROVIDERS: ADMIT Internal Medicine; ATTEND Internal Medicine
DX: I25.10 Atherosclerotic heart disease of native coronary artery without angina pectoris (principal); E11.9 Type 2 diabetes mellitus without complications; I11.0 Hypertensive heart disease with heart failure; I08.0 Rheumatic disorders of both mitral and aortic valves; I25.5 Ischemic cardiomyopathy; I50.82 Biventricular heart failure; Z79.4 Long term (current) use of insulin; Z79.899 Other long term (current) drug therapy
CPT/HCPCS: 36415; 71045; 71260; 80053; 80324; 80345; 80346; 80349; 80353; 80358; 80361; 82948; 83880; 83992; 84484; 85025; 85378; 93005; 93306; 96374; 99285; G0378; J1650; J1940; Q9967

== ENCOUNTER 2018-05-30 09:08 | Observation (INO) | payer MEDICAID, OTHER ==
[2018-05-30 09:15] VITALS: BMI 25.0
[2018-05-30] MEDS ORDERED: Aspirin 325 mg EC Tablets PO STA (09:27)
--- NOTE | 2018-05-30 09:39 | C.PDOC ---
History Of Present Illness 62 year old male with a history of diabetes presents to the emergency department with complaints of chest pain for one day. Patient describes the pain as pressure and reports associated shortness of breath. Time Seen by Provider: 05/30/18 09:20 Chief Complaint (Nursing): Chest Pain History Per: Patient History/Exam Limitations: no limitations Onset/Duration Of Symptoms: Days (1) Current Symptoms Are (Timing): Still Present Quality: Pressure Associated Symptoms: Dyspnea Past Medical History Reviewed: Historical Data, Nursing Documentation, Vital Signs Vital Signs: Last Vital Signs Temp 97.7 F 05/30/18 09:25 Pulse 102 H 05/30/18 09:27 Resp 18 05/30/18 09:27 BP 133/86 05/30/18 09:27 Pulse Ox 98 05/30/18 09:27 - Medical History PMH: HTN Surgical History: No Surg Hx Family History: States: No Known Family Hx - Social History Hx Alcohol Use: No Hx Substance Use: No - Immunization History Hx Tetanus Toxoid Vaccination: No Hx Influenza Vaccination: No Hx Pneumococcal Vaccination: No Review Of Systems Except As Marked, All Systems Reviewed And Found Negative. Cardiovascular: Positive for: Chest Pain Physical Exam - Physical Exam Appears: Well, Non-toxic, No Acute Distress Skin: Normal Color, Warm, Dry Head: Atraumatic, Normacephalic Eye(s): bilateral: Normal Inspection, PERRL, EOMI Nose: Normal Oral Mucosa: Moist Neck: Normal, Supple Chest: Symmetrical, No Tenderness Cardiovascular: Rhythm Regular, No Murmur Respiratory: Normal Breath Sounds, No Rales, No Rhonchi, No Wheezing Gastrointestinal/Abdominal: Soft, No Tenderness Extremity: Bilateral: Atraumatic, Normal Color And Temperature, Normal ROM Neurological/Psych: Oriented x3, Normal Speech ED Course And Treatment - Laboratory Results Result Diagrams: 05/30/18 09:46 05/30/18 09:46 ECG: Interpreted By Me, Viewed By Me ECG Rhythm: Sinus Rhythm Interpretation Of ECG: Normal sinus rhythm at 97bpm, normal intervals, left axis deviation, non-specific T-wave changes. Rate From EC O2 Sat by Pulse Oximetry: 98 (RA) Pulse Ox Interpretation: Normal - Other Rad CXR X-Ray: Viewed By Me, Read By Radiologist Interpretation: IMPRESSION: Cardiomegaly. Bilateral hilar prominence. Hyperinflation may be seen in setting of COPD. Medical Decision Making Medical Decision Making: Plan: EKG Chemistry Bloodwork CXR Ecotrin 325mg PO Assessment: Chest Pain Disposition Discussed With Dr.: Santos Granados Doctor Will See Patient In The: Hospital Counseled Patient/Family Regarding: Studies Performed, Diagnosis - Disposition Disposition: HOSPITALIZED Disposition Time: 10:50 Condition: FAIR - Clinical Impression Clinical Impression: Chest pain - Scribe Statement The provider has reviewed the documentation as recorded by the Scribe (Damon Porter) Provider Attestation: All medical record entries made by the Scribe were at my direction and personally dictated by me. I have reviewed the chart and agree that the record accurately reflects my personal performance of the history, physical exam, medical decision making, and the department course for this patient. I have also personally directed, reviewed, and agree with the discharge instructions and disposition.
[2018-05-30 09:50] LABS: BASO # 0.1 K/uL (0.0-0.2); BASO % 1.1 % (0.0-2.0); EOS # 0.1 K/uL (0.0-0.7); HEMOGLOBIN 15.2 g/dL (12.0-18.0); LYMPH # 2.2 K/uL (1.0-4.3); LYMPH % 32.9 % (20.0-40.0); MEAN CORPUSCULAR HEMOGLOBIN 28.1 pg (27.0-31.0); MEAN CORPUSCULAR HGB CONC 33.4 g/dL (33.0-37.0); MEAN PLATELET VOLUME 8.6 fL (7.2-11.7); MONO # 0.7 K/uL (0.0-0.8); MONO % 9.8 % (0.0-10.0); NEUT # 3.6 K/uL (1.8-7.0); NEUT % 54.2 % (50.0-75.0); RBC 5.41 Mil/uL (4.40-5.90); RED CELL DISTRIBUTION WIDTH 13.8 % (11.5-14.5); WHITE BLOOD COUNT 6.7 K/uL (4.8-10.8)
[2018-05-30 10:02] LABS: ALB/GLOB RATIO 1.3 (1.0-2.1); ALBUMIN 3.8 g/dL (3.5-5.0); ALT/SGPT 54 U/L (21-72); AST/SGOT 34 U/L (17-59); BLOOD UREA NITROGEN 24 mg/dL (9-20); CALCIUM 8.7 mg/dl (8.6-10.4); GFR NON-AFRICAN AMERICAN > 60
[2018-05-30 10:15] LABS: B-TYPE NATRIURETIC PEPTIDE 2760 pg/mL (0-900)
--- NOTE | 2018-05-30 10:44 | RAD ---
HISTORY: SOB COMPARISON: Chest x-ray performed 01/13/18, CT chest with contrast performed 01/13/18 TECHNIQUE: Chest, one view. FINDINGS: LUNGS: Hyperinflation may be seen in the setting of COPD. Bilateral hilar prominence. No focal consolidation. Please note that chest x-ray has limited sensitivity for the detection of pulmonary masses. PLEURA: No significant pleural effusion identified. No definite pneumothorax . CARDIOVASCULAR: Cardiomegaly. Atherosclerotic calcifications. OSSEOUS STRUCTURES: Degenerative changes. VISUALIZED UPPER ABDOMEN: Unremarkable. OTHER FINDINGS: None. IMPRESSION: Cardiomegaly. Bilateral hilar prominence. Hyperinflation may be seen in setting of COPD.
[2018-05-30] MEDS ORDERED: Glucagon Recombinant 1 mg Inj IM PRN (11:50)
[2018-05-30] MEDS ORDERED: Dextrose 50% SYRINGE Inj (50 ml) IV PRN (11:50)
--- NOTE | 2018-05-30 11:56 | CP.PCM.HP ---
History of Present Illness - History of Present Illness History of Present Illness: cc: "my chest hurt" Mr. Yun is a 62 year old male PMH CHF, HTN, DM came to the ED after sudden chest pain woke up from sleep at 3 in the morning. It was a stabbing pressure similar to what brought him to the hospital in January. It localized to slightly left of midsternal without radiation. Because he ran out of medication yesterday, he wanted to get the pain checked out and refill the medication. As it has been over three months, and he was only given a 30 day supply, he has not been taking the medication as prescribed. The pain is associated with shortness of breath and headache that has resolved since getting aspirin in the ED. He hasn't done any of the recommended follow up post discharge, such as a stress test with the lens edge grinder machine. PMD: none PMH: CHF, HTN, DM Med: Furosemide 40, lisinopril 2.5, metformin 500 bid, metoprolol 12.5, rosuvastatin 5 hs. Noncompliant All: NKDA PSxHx: denies FamHx: mother - in 60s from [place]. other FamHx unknown SocHx: denies ever tobacco, alcohol, illicit drugs. Lives in an apartment with . 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 Retired "today" Full Code Proxy: Olga Yun [phone] Present on Admission - Present on Admission Any Indicators Present on Admission: No Review of Systems - Constitutional Constitutional: Headache. absent: Chills, Excessive Sweating, Fever, Lethargy, Malaise, Night Sweats, Snoring, Weakness - EENT Eyes: absent: Blind Spots, Blurred Vision, Diplopia Ears: absent: Decreased Hearing, Ear Discharge, Tinnitus Nose/Mouth/Throat: absent: Nasal Congestion, Nasal Discharge, Dysphagia, Odynophagia - Cardiovascular Cardiovascular: Chest Pain, Chest Pain at Rest, Dyspnea. absent: Claudication, Dyspnea on Exertion, Edema, Irregular Heart Rhythm, Lightheadedness, Orthopnea, Palpitations, Syncope - Respiratory Respiratory: absent: Cough, Dyspnea, Dyspnea on Exertion, Wheezing - Gastrointestinal Gastrointestinal: absent: Abdominal Pain, Bloating, Constipation, Cramping, Diarrhea, Nausea, Vomiting - Genitourinary Genitourinary: absent: Dysuria, Urinary Frequency - Musculoskeletal Musculoskeletal: absent: Back Pain, Neck Pain, Numbness, Tingling - Integumentary Integumentary: absent: Bleeding Lesions, Lesions - Neurological Neurological: absent: Disequilibrium, Numbness, Headaches, Tingling - Psychiatric Psychiatric: absent: Anxiety, Depression Past Patient History - Past Medical History & Family History Pertinent Family History: mother d/t [place] in 60s - Past Social History Smoking Status: Never Smoked Alcohol: None Drugs: Denies Home Situation {Lives}: With Family - CARDIAC Hx Hypertension: Yes - ENDOCRINE/METABOLIC Hx Diabetes Mellitus Type 1: Yes - PSYCHIATRIC Hx Substance Use: No - SURGICAL HISTORY Hx Surgeries: No - ANESTHESIA Hx Anesthesia: No Hx Anesthesia Reactions: No Meds Allergies/Adverse Reactions: Allergies Allergy/AdvReac Type Severity Reaction Status Date / Time No Known Allergies Allergy Verified 01/13/18 08:08 Physical Exam - Constitutional Appears: Well, No Acute Distress - Head Exam Head Exam: ATRAUMATIC, NORMOCEPHALIC - Eye Exam Eye Exam: EOMI, Normal appearance, PERRL - ENT Exam ENT Exam: Mucous Membranes Dry - Neck Exam Neck exam: Positive for: Full Rom, Normal Inspection. Negative for: Lymphadenopathy, Tenderness - Respiratory Exam Respiratory Exam: Clear to Auscultation Bilateral, NORMAL BREATHING PATTERN. absent: Decreased Breath Sounds, Rhonchi, Wheezes Additional comments: mild right basilar rales - Cardiovascular Exam Cardiovascular Exam: REGULAR RHYTHM, +S1, +S2. absent: Gallop, Rubs - GI/Abdominal Exam GI & Abdominal Exam: Normal Bowel Sounds, Soft. absent: Distended, Firm, Guarding, Tenderness - Extremities Exam Extremities exam: Positive for: normal capillary refill, pedal pulses present. Negative for: calf tenderness, pedal edema Additional comments: peripheral pulses present bilaterally IV access in L AC - Back Exam Back exam: absent: CVA tenderness (L), CVA tenderness (R) - Neurological Exam Neurological exam: Alert, CN II-XII Intact, Normal Gait, Oriented x3, Reflexes Normal - Psychiatric Exam Psychiatric exam: Normal Affect, Normal Mood - Skin Skin Exam: Dry, Intact, Normal Color, Warm Results - Vital Signs Recent Vital Signs: Last Vital Signs Temp 98 F 05/30/18 11:15 Pulse 96 H 05/30/18 11:15 Resp 27 H 05/30/18 11:15 BP 136/94 H 05/30/18 11:15 Pulse Ox 98 05/30/18 11:22 - Labs Result Diagrams: 05/30/18 09:46 05/30/18 09:46 Labs: Laboratory Results - last 24 hr 05/30/18 05/30/18 09:46 09:46 WBC 6.7 RBC 5.41 Hgb 15.2 Hct 45.5 MCV 84.0 MCH 28.1 MCHC 33.4 RDW 13.8 Plt Count 185 MPV 8.6 Neut % (Auto) 54.2 Lymph % (Auto) 32.9 Cowley % (Auto) 9.8 Eos % (Auto) 2.0 Baso % (Auto) 1.1 Neut # (Auto) 3.6 Lymph # (Auto) 2.2 Cowley # (Auto) 0.7 Eos # (Auto) 0.1 Baso # (Auto) 0.1 Sodium 136 Potassium 4.1 Chloride 105 Carbon Dioxide 24 Anion Gap 11 BUN 24 H Creatinine 0.9 Est GFR ( Amer) > 60 Est GFR (Non-Af Amer) > 60 Random Glucose 262 H D Calcium 8.7 Total Bilirubin 0.6 AST 34 ALT 54 Alkaline Phosphatase 108 Troponin I 0.0360 NT-Pro-B Natriuret Pep 2760 H Total Protein 6.8 Albumin 3.8 Globulin 3.0 Albumin/Globulin Ratio 1.3 - EKG Data EKG shows normal: Sinus rhythm Rate: Tachycardia Assessment & Plan - Assessment and Plan (Free Text) Assessment: 62yoM PMH CHF, HTN, DM admitted for CP r/o ACS, likely CHF exacerbation 2/2 medication noncompliance. Plan: CP r/o ACS, likely systolic CHF exacerbation 2/2 medication noncompliance - ECHO (01/13/18): LVEF 15-20% with moderate aortic regurgitation, moderate mitral regurgitation, and mild pulmonary hypertension. - CXR (05/30): cardiomegaly, bilateral hilar prominence, hyperinflation - FABIO neg x2, f/u FABIO @ 2100 - BNP 2760 (increased from 1500 in Jan 2018) - EKG sinus tachycardia @ 97 - Cardio consulted: Dr. Edmundo Granados - help appreciated - patient did not follow up as outpatient. may require inpatient Lexiscan stress test Diabetes Mellitus - home Metformin held for heart failure exacerbation - f/u [facility] - hypoglycemia protocol Hypertension - home Metoprolol held for heart failure exacerbation - home Lasix 40 po daily -> Lasix 20 IVP bid - home Lisinopril 2.5 mg po daily - monitor vitals PPx - DVT: Heparin 5000u sc q8, SCDs - GI: not indicated - Diet: HHManasa d/w Dr. Adela Beard PGY-1 - Date & Time Date: 05/30/18 Time: 11:30
[2018-05-30] MEDS ORDERED: Metoprolol Succinate 12.5 mg XL Tab PO SCH (12:00)
[2018-05-30] MEDS: (Novolog) Insulin Aspart, Recombinant 100 u/ml 10 ml vial SC SCH ×3 (12:49→21:26)
[2018-05-30] MEDS ORDERED: (Novolin R) Insulin Human Regular 100 units/ml vial ONE (12:50)
[2018-05-30 14:26] LABS: INR 1.1; PROTHROMBIN TIME 12.3 SECONDS (9.7-12.2)
[2018-05-30 16:27] VITALS: RESP 20
[2018-05-30 17:34] LABS: CK-MB 1.16 ng/mL (0.0-3.38); TROPONIN I 0.031 ng/mL (0.00-0.120)
[2018-05-30 22:39] LABS: CK-MB 1.05 ng/mL (0.0-3.38); TROPONIN I 0.028 ng/mL (0.00-0.120)
[2018-05-31 06:28] LABS: BLOOD UREA NITROGEN 25 mg/dL (9-20); CALCIUM 8.9 mg/dl (8.6-10.4); GFR NON-AFRICAN AMERICAN > 60
[2018-05-31 08:13] VITALS: PULSE 87; TEMP 97.9; O2SAT 97
[2018-05-31] MEDS: (Novolog) Insulin Aspart, Recombinant 100 u/ml 10 ml vial SC SCH ×2 (08:24→12:23)
[2018-05-31 10:26] VITALS: BP 120/76
--- NOTE | 2018-05-31 12:59 | CP.PCM.PN ---
Subjective - Date & Time of Evaluation Date of Evaluation: 05/31/18 Time of Evaluation: 12:57 - Subjective Subjective: PT STABLE. Objective - Vital Signs/Intake and Output Vital Signs (last 24 hours): Temp Pulse Resp BP Pulse Ox 97.9 F 87 20 120/76 97 05/31/18 07:25 05/31/18 07:25 05/31/18 07:25 05/31/18 10:25 05/31/18 07:25 Intake and Output: 05/31/18 05/31/18 06:59 18:59 Intake Total 320 Output Total 450 Balance -130 - Medications Medications: Current Medications Dextrose (Dextrose 50% Inj) 0 ml IV STAT PRN; Protocol PRN Reason: Hypoglycemia Protocol Dextrose (Glutose 15) 0 gm PO ONCE PRN; Protocol PRN Reason: Hypoglycemia Protocol Furosemide (Lasix) 20 mg IVP BID [facility] Last Admin: 05/31/18 10:25 Dose: 20 mg Glucagon (Glucagen Diagnostic Kit) 0 mg IM STAT PRN; Protocol PRN Reason: Hypoglycemia Protocol Heparin Sodium (Porcine) (Heparin) 5,000 units SC Q8 [facility] Last Admin: 05/31/18 05:49 Dose: 5,000 units Dextrose (Dextrose 5% In Water 1000 Ml) 1,000 mls @ 0 mls/hr IV .Q0M PRN; Protocol PRN Reason: Hypoglycemia Protocol Insulin Aspart (Novolog) 0 unit SC ACHS [facility]; Protocol Last Admin: 05/31/18 12:23 Dose: 8 units Lisinopril (Zestril) 2.5 mg PO DAILY [facility] Last Admin: 05/31/18 10:24 Dose: 2.5 mg Rosuvastatin Calcium (Crestor) 5 mg PO HS [facility] Last Admin: 05/30/18 21:26 Dose: 5 mg - Labs Labs: 05/30/18 09:46 05/31/18 06:04 PT 12.3 SECONDS (9.7-12.2) H 05/30/18 14:14 INR 1.1 05/30/18 14:14 APTT 32 SECONDS (21-34) 05/30/18 14:14 - Constitutional Appears: Chronically Ill - Eye Exam Eye Exam: PERRL Assessment and Plan - Assessment and Plan (Free Text) Assessment: CHF STABLE. Plan: OK FOR DISCHARGE.
--- NOTE | 2018-05-31 13:23 | CP.PCM.PCO ---
Physician Communication Note - Physician Communication Note Physician Communication Note: Please see above
--- NOTE | 2018-05-31 14:02 | CP.PCM.DIS ---
Provider - Provider Date of Admission: 05/30/18 10:49 Attending physician: Santos Granados MD Consults: 05/30/18 12:05 Cardiology Consult Routine Comment: Consulting Provider: Santosh Granados Consulting Physician: Santosh Granados Reason for Consult: CP, known CHF Time Spent in preparation of Discharge (in minutes): 45 Diagnosis - Discharge Diagnosis (1) CHF exacerbation Status: Acute Hospital Course - Lab Results Lab Results: Most Recent Lab Values WBC 6.7 K/uL (4.8-10.8) 05/30/18 09:46 RBC 5.41 Mil/uL (4.40-5.90) 05/30/18 09:46 Hgb 15.2 g/dL (12.0-18.0) 05/30/18 09:46 Hct 45.5 % (35.0-51.0) 05/30/18 09:46 MCV 84.0 fL (80.0-94.0) 05/30/18 09:46 MCH 28.1 pg (27.0-31.0) 05/30/18 09:46 MCHC 33.4 g/dL (33.0-37.0) 05/30/18 09:46 RDW 13.8 % (11.5-14.5) 05/30/18 09:46 Plt Count 185 K/uL (130-400) 05/30/18 09:46 MPV 8.6 fL (7.2-11.7) 05/30/18 09:46 Neut % (Auto) 54.2 % (50.0-75.0) 05/30/18 09:46 Lymph % (Auto) 32.9 % (20.0-40.0) 05/30/18 09:46 Floyd % (Auto) 9.8 % (0.0-10.0) 05/30/18 09:46 Eos % (Auto) 2.0 % (0.0-4.0) 05/30/18 09:46 Baso % (Auto) 1.1 % (0.0-2.0) 05/30/18 09:46 Neut # (Auto) 3.6 K/uL (1.8-7.0) 05/30/18 09:46 Lymph # (Auto) 2.2 K/uL (1.0-4.3) 05/30/18 09:46 Floyd # (Auto) 0.7 K/uL (0.0-0.8) 05/30/18 09:46 Eos # (Auto) 0.1 K/uL (0.0-0.7) 05/30/18 09:46 Baso # (Auto) 0.1 K/uL (0.0-0.2) 05/30/18 09:46 PT 12.3 SECONDS (9.7-12.2) H 05/30/18 14:14 INR 1.1 05/30/18 14:14 APTT 32 SECONDS (21-34) 05/30/18 14:14 Sodium 136 mmol/L (132-148) 05/31/18 06:04 Potassium 3.8 mmol/L (3.6-5.2) 05/31/18 06:04 Chloride 102 mmol/L (98-107) 05/31/18 06:04 Carbon Dioxide 26 mmol/L (22-30) 05/31/18 06:04 Anion Gap 11 (10-20) 05/31/18 06:04 BUN 25 mg/dL (9-20) H 05/31/18 06:04 Creatinine 1.0 mg/dL (0.8-1.5) 05/31/18 06:04 Est GFR ( Amer) > 60 05/31/18 06:04 Est GFR (Non-Af Amer) > 60 05/31/18 06:04 POC Glucose (mg/dL) 385 mg/dL (65-110) H 05/31/18 11:48 Random Glucose 231 mg/dL (75-110) H 05/31/18 06:04 Hemoglobin A1c 12.5 % (4.2-6.5) H 05/31/18 06:04 Calcium 8.9 mg/dl (8.6-10.4) 05/31/18 06:04 Phosphorus 3.2 mg/dL (2.5-4.5) 05/31/18 06:04 Magnesium 1.9 mg/dL (1.6-2.3) 05/31/18 06:04 Total Bilirubin 0.6 mg/dL (0.2-1.3) 05/30/18 09:46 AST 34 U/L (17-59) 05/30/18 09:46 ALT 54 U/L (21-72) 05/30/18 09:46 Alkaline Phosphatase 108 U/L (38-126) 05/30/18 09:46 Total Creatine Kinase 42 U/L (55-170) L 05/30/18 22:03 CK-MB (Mass) 1.05 ng/mL (0.0-3.38) 05/30/18 22:03 Troponin I 0.0280 ng/mL (0.00-0.120) 05/30/18 22:03 NT-Pro-B Natriuret Pep 2760 pg/mL (0-900) H 05/30/18 09:46 Total Protein 6.8 g/dL (6.3-8.3) 05/30/18 09:46 Albumin 3.8 g/dL (3.5-5.0) 05/30/18 09:46 Globulin 3.0 gm/dL (2.2-3.9) 05/30/18 09:46 Albumin/Globulin Ratio 1.3 (1.0-2.1) 05/30/18 09:46 - Hospital Course Hospital Course: Mr. Yun is a 62 year old male PMH CHF, HTN, DM came to the ED after sudden chest pain woke up from sleep at 3 in the morning. It was a stabbing pressure similar to what brought him to the hospital in January. It localized to slightly left of midsternal without radiation. Because he ran out of medication yesterday, he wanted to get the pain checked out and refill the medication. As it has been over three months, and he was only given a 30 day supply, he has not been taking the medication as prescribed. The pain is associated with shortness of breath and headache that has resolved since getting aspirin in the ED. He hasn't done any of the recommended follow up post discharge, such as a stress test with the drywall finishing foreman. CXR showed cardiomegaly, bilateral hilar prominence, hyperinflation. FABIO and EKG neg x3. BNP increase noted from Jan. ECHO and Stress test were not indicated this visit as most recent ECHO was in Jan and patient is stable. Patient is asymptomatic at present and cleared for d/c per cardio. His diabetes is uncontrolled as evidenced by Hgb A1c of 12.5. It was controlled via ISS while hospitalized. His hypertension was well controlled this admission with home medication regimen. Primary Diagnosis: HFrEF exacerbation 2/2 medication noncompliance Patient is clear for discharge per Drs. Adela Granados and Edmundo Granados. Patient is to restart his home medications with the exception of Crestor for Lipitor as it should be less costly for him. He needs to take these every day, not just when he's having symptoms. He's being discharged with enough medication for 1 month. He needs to see the doctor before that month ends to get a refill. These are his medications: Metformin 500 mg, 1 tablet by mouth 2x/day (8 AM and 8 PM), Dispense #60, NO refills Atorvastatin 10 mg, 1 tablet by mouth 1x/day (8 PM), Dispense #30, NO refills Furosemide 40 mg, 1 tablet by mouth 1x/day (8 AM), Dispense #30, NO refills Lisinopril 2.5 mg, 1 tablet by mouth 1x/day (2 PM), Dispense #30, NO refills Metoprolol XL 12.5 mg, 1 tablet by mouth 1x/day (8 PM), Dispense #30, NO refills He needs to make an appointment with the [facility] downstairs to follow up on his uncontrolled diabetes and get a refill on his heart failure medications. If these symptoms should return or worsen, please come back to the ED. The plan was explained to the patient who understood and agreed. This is a summary of the hospital course. Please refer to the EMR for more detail. - Date & Time of H&P Date of H&P: 05/31/18 Time of H&P: 14:00 Discharge Exam - Head Exam Head Exam: ATRAUMATIC, NORMOCEPHALIC - Eye Exam Eye Exam: EOMI, Normal appearance - ENT Exam ENT Exam: Mucous Membranes Moist - Respiratory Exam Respiratory Exam: Clear to PA & Lateral, NORMAL BREATHING PATTERN. absent: Rhonchi, Wheezes, Respiratory Distress - Cardiovascular Exam Cardiovascular Exam: REGULAR RHYTHM, +S1, +S2. absent: Gallop, Rubs, Systolic Murmur - GI/Abdominal Exam GI & Abdominal Exam: Normal Bowel Sounds, Soft. absent: Distended, Firm, Guarding, Tenderness - Extremities Exam Extremities exam: normal capillary refill, pedal pulses present - Back Exam Back exam: absent: CVA tenderness (L), CVA tenderness (R) - Neurological Exam Neurological exam: Alert, CN II-XII Intact, Normal Gait, Oriented x3 - Psychiatric Exam Psychiatric exam: Normal Affect, Normal Mood - Skin Skin Exam: Dry, Intact, Normal Color, Warm Discharge Plan - Discharge Medications Prescriptions: Atorvastatin [Lipitor] 10 mg PO HS 30 Days #30 tab Furosemide [Lasix] 40 mg PO DAILY 30 Days #30 tab Lisinopril 2.5 mg PO DAILY 30 Days #30 tab metFORMIN [glucOPHAGE] 500 mg PO BID 30 Days #60 tab Metoprolol Succinate XL [Toprol XL] 12.5 mg PO DAILY 30 Days #30 tab - Follow Up Plan Condition: FAIR Disposition: HOME/ ROUTINE Instructions: Heart Failure, Adult (DC), Chest Pain (DC) Additional Instructions: Patient is clear for discharge per Drs. Adela Granados and Edmundo Granados. Patient is to restart his home medications with the exception of Crestor for Lipitor as it should be less costly for him. He needs to take these every day, not just when he's having symptoms. He's being discharged with enough medication for 1 month. He needs to see the doctor before that month ends to get a refill. These are his medications: Metformin 500 mg, 1 tablet by mouth 2x/day (8 AM and 8 PM), Dispense #60, NO refills Atorvastatin 10 mg, 1 tablet by mouth 1x/day (8 PM), Dispense #30, NO refills Furosemide 40 mg, 1 tablet by mouth 1x/day (8 AM), Dispense #30, NO refills Lisinopril 2.5 mg, 1 tablet by mouth 1x/day (2 PM), Dispense #30, NO refills Metoprolol XL 12.5 mg, 1 tablet by mouth 1x/day (8 PM), Dispense #30, NO refills He needs to make an appointment with the [facility] downstairs to follow up on his uncontrolled diabetes and get a refill on his heart failure medications. If these symptoms should return or worsen, please come back to the ED. The plan was explained to the patient who understood and agreed. El paciente est listo para el cassia por los Dres. Adela Granados y Edmundo Granados. El paciente debe reiniciar pablo medicamentos caseros con la excepcin de Crestor para Lipitor, ya que debera ser menos costoso para l. Necesita tomarlos todos los paiz, no solo cuando tiene sntomas. l est siendo dado de cassia con suficiente medicacin por 1 mes. Necesita brooke al mdico antes de que termine chas mes para obtener un resurtido. Estos son pablo medicamentos: Metformina 500 mg, 1 comprimido por va oral 2 veces al da (8 AM y 8 PM), dispensado # 60, NO repuestos Atorvastatina 10 mg, 1 tableta por va oral 1x / da (8 PM), dispensado # 30, NO repuestos Furosemida 40 mg, 1 comprimido por va oral 1x / da (8 AM), dispensado # 30, NO repuestos Lisinopril 2.5 mg, 1 comprimido por va oral 1x / da (2 PM), dispensado # 30, NO repuestos Metoprolol XL 12.5 mg, 1 tableta por va oral 1x / da (8 PM), dispensado # 30, NO repuestos Necesita hacer maia brett con la [employer] de abajo para hacer un seguimiento de doll diabetes no controlada y volver a surtir pablo medicamentos para la insuficiencia cardaca. Si estos sntomas reaparecen o empeoran, vuelva al servicio de urgencias. El plan fue explicado al paciente que entendi y estuvo de acuerdo. Fur Nailer Dr. Edmundo Granados has seen patient and has cleared for discharge. Extensive conversation with patient at the time of admission and discharge about taking his medications consistenly. The following instructions will need to be provided to patient in Greek upon discharge: 1). Schedule follow up with the [facility] located on [address] of [facility] on [address] in [place], [place] by calling [phone] for an appointment in the next 7 to 10 days. They will be your primary care providers to help coordinate your health care, provide you with referral for [facility], and provide you with prescriptions that you will have to refill at your pharmacy. 2). You must take your medications consistently. Failure to do so will have serious consequences for your health. 3). You were provided with prescriptions for the following medications that you will have to have filled at your pharmacy on your way home from the hospital: Metformin 500 mg, 1 tablet by mouth 2x/day (8 AM and 8 PM), Dispense #60, NO refills Atorvastatin 10 mg, 1 tablet by mouth 1x/day (8 PM), Dispense #30, NO refills Furosemide 40 mg, 1 tablet by mouth 1x/day (8 AM), Dispense #30, NO refills Lisinopril 2.5 mg, 1 tablet by mouth 1x/day (2 PM), Dispense #30, NO refills Metoprolol XL 12.5 mg, 1 tablet by mouth 1x/day (8 PM), Dispense #30, NO refills 4). You should follow a low carbohydrate, low salt, low fat, low cholesterol diet. 5). Weigh yourself daily and should your weight increase by greater than 4 to 5 pounds, please notify the clinic [phone] 6). Please follow the above instructions. Failure to do so will have serious consequences to your health 7). Please take care and be well. Referrals: [facility] [Outside] Clinical Quality Measures - CQM - Heart Failure Ejection Fraction: Less Than 40 % HEVER Inhibitor Prescribed: Yes Beta-Charlotte Prescribed: Metoprolol Succinate Angiotensin II Receptor Charlotte Prescribed: No Contraindication/Reason for not providing: ACEi given AnticoagulationTherapy for Atrial Fibrillation/Atrialflutter: No Contraindication/Reason for not providing: no AFib Aldosterone Antagonist Prescribed: No Contraindication/Reason for not providing: not indicated Hydralazine Nitrate Prescribed: No Contraindication/Reason for not providing: not indicated Implantable Cardioverter Defibrillator Therapy: No Contraindication/Reason for not providing: medical management optimization Cardiac Resynchronization Therapy Prescribed: No Contraindication/Reason for not providing: not indicated
--- NOTE | 2018-05-31 21:07 | CON ---
DATE: 05/31/2018 CARDIOLOGY CONSULTATION HISTORY OF PRESENT ILLNESS: This is a 62-year-old male was admitted from the emergency room. The patient came to the emergency room with history of severe chest pain associated with shortness of breath. The patient has history of congestive heart failure, hypertension, and diabetes. The patient is noncompliant with the medications. The patient was admitted in 01/2018 for the same and treated for congestive heart failure and discharged home with home medication for 30 days. The patient is noncompliant with the medications. PAST MEDICAL HISTORY: History of congestive heart failure, hypertension, and diabetes. MEDICATIONS: Lasix 40 mg, lisinopril 2.5, metformin 500 mg twice a day, metoprolol 12.5 mg, and rosuvastatin 5 mg p.o. daily, noncompliant. ALLERGIES: NO KNOWN ALLERGIES. FAMILY HISTORY: No known inherited diseases. SOCIAL HISTORY: Nonsmoker, nonalcoholic, no IVDA. PHYSICAL EXAMINATION: GENERAL: This is a 62-year-old male, awake, alert, comfortable. VITAL SIGNS: Temperature 98 degrees, pulse 96, respirations 27, and blood pressure 136/94 mmHg. HEENT: Normal, JVP is flat. No carotid bruits. LUNGS: No rales, no wheezing. HEART: S1 and S2 normal. No gallop, no murmur. ABDOMEN: Soft and nontender. No organomegaly. CENTRAL NERVOUS SYSTEM: No focal neurological deficits. LABORATORY DATA: Troponins are negative. EKG showed normal sinus rhythm with left ventricular hypertrophy. IMPRESSION: 1. Congestive heart failure. 2. Chest pain. 3. Hypertension and diabetes. SUGGESTIONS: Agree with present management. The patient is stable at this time. The patient can be discharged home as per primary care physician. Santosh Granados MD
--- NOTE | 2018-05-31 22:30 | CARD ---
APPROVED REPORT Date of service: 05/30/2018 EKG Measurement Heart [id number] <Conclusion> Normal sinus rhythm Possible Left atrial enlargement Nonspecific T wave abnormality Prolonged QT Abnormal ECG
--- NOTE | 2018-05-31 22:30 | CARD ---
APPROVED REPORT Date of service: 05/30/2018 EKG Measurement Heart [id number] <Conclusion> Normal sinus rhythm Left axis deviation Minimal voltage criteria for LVH, may be normal variant ST & T wave abnormality, consider lateral ischemia Abnormal ECG
--- NOTE | 2018-05-31 22:30 | CARD ---
APPROVED REPORT Date of service: 05/30/2018 EKG Measurement Heart [id number] <Conclusion> Normal sinus rhythm with sinus arrhythmia T wave abnormality, consider lateral ischemia Abnormal ECG
== END 2018-05-31 17:00 | disposition home or self-care (01) ==
LOC: C.ER 09:08 → C.9E 10:49 → C.6T 14:14
PROVIDERS: ADMIT Family Medicine; ATTEND Family Medicine
DX: I11.0 Hypertensive heart disease with heart failure (principal); I50.23 Acute on chronic systolic (congestive) heart failure; Z91.14 Patient's other noncompliance with medication regimen; Z91.19 Patient's noncompliance with other medical treatment and regimen; E11.9 Type 2 diabetes mellitus without complications; Z79.84 Long term (current) use of oral hypoglycemic drugs
CPT/HCPCS: 36415; 71045; 80048; 80053; 82948; 83036; 83735; 83880; 84100; 84484; 85025; 85610; 85730; 93005; 96372; 96374; 99285; G0378; J1644; J1940

== ENCOUNTER 2018-09-10 05:49 | Observation (INO) | payer OTHER ==
[2018-09-10 05:49] VITALS: BMI 25.0
[2018-09-10 06:19] LABS: BASO # 0.1 K/uL (0.0-0.2); BASO % 0.8 % (0.0-2.0); EOS % 0.4 % (0.0-4.0); HEMOGLOBIN 14.5 g/dL (12.0-18.0); LYMPH # 1.8 K/uL (1.0-4.3); LYMPH % 23.9 % (20.0-40.0); MEAN CELL VOLUME 85.2 fL (80.0-94.0); MEAN CORPUSCULAR HGB CONC 32.9 g/dL (33.0-37.0); MEAN PLATELET VOLUME 9.2 fL (7.2-11.7); MONO # 0.6 K/uL (0.0-0.8); MONO % 7.8 % (0.0-10.0); NEUT # 5.2 K/uL (1.8-7.0); NEUT % 67.1 % (50.0-75.0); RBC 5.19 Mil/uL (4.40-5.90); RED CELL DISTRIBUTION WIDTH 13.5 % (11.5-14.5); WHITE BLOOD COUNT 7.7 K/uL (4.8-10.8)
[2018-09-10 06:32] LABS: INR 1.1; PROTHROMBIN TIME 12.1 SECONDS (9.7-12.2)
[2018-09-10 06:41] LABS: ALB/GLOB RATIO 1.4 (1.0-2.1); ALBUMIN 3.6 g/dL (3.5-5.0); ALT/SGPT 170 U/L (21-72); AST/SGOT 202 U/L (17-59); BLOOD UREA NITROGEN 19 mg/dL (9-20); CALCIUM 8.9 mg/dl (8.6-10.4); GFR NON-AFRICAN AMERICAN > 60
--- NOTE | 2018-09-10 07:41 | C.PDOC ---
History Of Present Illness 63 y/o male,w/PMhx of diabetes, HTN, and questionable CHF, presents to the ER complaining of chest pain which began at 8 pm last night. Patient describes the pain as "gas." Patient reports he has associated SOB. He notes he takes his medications. He was recently sick with flu like symptoms. Denies having fever,chills, nausea, vomiting, and leg swelling. Time Seen by Provider: 09/10/18 07:10 Chief Complaint (Nursing): Chest Pain History Per: Director Of Scientific Research (#[id number]) History/Exam Limitations: no limitations Onset/Duration Of Symptoms: Days Current Symptoms Are (Timing): Still Present Severity: Moderate Past Medical History Reviewed: Historical Data, Nursing Documentation, Vital Signs Vital Signs: Last Vital Signs Temp 98.3 F 09/10/18 05:56 Pulse 112 H 09/10/18 05:56 Resp 22 09/10/18 05:56 BP 141/101 H 09/10/18 05:56 Pulse Ox 95 09/10/18 05:56 - Medical History PMH: HTN Surgical History: No Surg Hx Family History: States: No Known Family Hx - Social History Hx Alcohol Use: No Hx Substance Use: No - Immunization History Hx Tetanus Toxoid Vaccination: No Hx Influenza Vaccination: No Hx Pneumococcal Vaccination: No Review Of Systems Constitutional: Negative for: Fever, Chills Cardiovascular: Positive for: Chest Pain Respiratory: Positive for: Shortness of Breath Gastrointestinal: Negative for: Nausea, Vomiting Physical Exam - Physical Exam Appears: Well, Non-toxic, No Acute Distress Skin: Warm, Dry Head: Atraumatic, Normacephalic Eye(s): bilateral: Normal Inspection Neck: Supple Chest: Symmetrical Cardiovascular: Rhythm Irregular (tachycardic) Respiratory: No Rales, No Rhonchi, No Wheezing, Other (tachypneic) Gastrointestinal/Abdominal: Soft, No Tenderness, No Guarding, No Rebound Extremity: Normal ROM, No Pedal Edema Neurological/Psych: Oriented x3, Normal Speech, Normal Cognition ED Course And Treatment - Laboratory Results Result Diagrams: 09/10/18 06:15 09/10/18 06:14 Lab Results: PT 12.1 SECONDS (9.7-12.2) 09/10/18 06:15 INR 1.1 09/10/18 06:15 APTT 37 SECONDS (21-34) H 09/10/18 06:15 Troponin I 0.0300 ng/mL (0.00-0.120) 09/10/18 06:14 Total Bilirubin 0.7 mg/dL (0.2-1.3) 09/10/18 06:14 AST 202 U/L (17-59) H D 09/10/18 06:14 ALT 170 U/L (21-72) H D 09/10/18 06:14 Alkaline Phosphatase 159 U/L (38-126) H D 09/10/18 06:14 Total Protein 6.2 g/dL (6.3-8.3) L 09/10/18 06:14 Albumin 3.6 g/dL (3.5-5.0) 09/10/18 06:14 Globulin 2.6 gm/dL (2.2-3.9) 09/10/18 06:14 Albumin/Globulin Ratio 1.4 (1.0-2.1) 09/10/18 06:14 ECG: Interpreted By Me, Viewed By Me ECG Rhythm: Sinus Tachycardia Interpretation Of ECG: Sinus Tachycardia with left axis deviation and non specific T wave abnormality Rate From EC O2 Sat by Pulse Oximetry: 95 (RA) Pulse Ox Interpretation: Normal - Other Rad CXR X-Ray: Viewed By Me, Read By Radiologist Interpretation: HISTORY: sob, cp. COMPARISON: Chest x-ray performed 05/30/18. TECHNIQUE: Chest PA and lateral, 2 views. FINDINGS: LUNGS: Patchy opacities in the right mid lung zone suspicious for pneumonia. Please note that chest x- ray has limited sensitivity for the detection of pulmonary masses. PLEURA: No significant pleural effusion identified. No definite pneumothorax . CARDIOVASCULAR: Borderline cardiomegaly. Atherosclerotic calcifications of the aorta. OSSEOUS STRUCTURES: No acute osseous abnormality identified. Degenerative changes. VISUALIZED UPPER ABDOMEN: Unremarkable. OTHER FINDINGS: None. IMPRESSION: Suspected patchy pneumonia, right midlung zone. Medical Decision Making Medical Decision Making: Plan: --Labs --EKG --CXR discussed with Dr Rivera and medical territory manager. will admit to tele Disposition Discussed With : David Rivera Jr. Doctor Will See Patient In The: Hospital - Disposition Disposition: HOSPITALIZED Disposition Time: 08:58 Condition: STABLE - Clinical Impression Clinical Impression: Chest pain, Uncontrolled diabetes mellitus - PA / PHOTOGRAPHY SPOTTER / Resident Statement MD/DO has reviewed & agrees with the documentation as recorded. - Scribe Statement The provider has reviewed the documentation as recorded by the Samibnan Edouard Provider Attestation All medical record entries made by the Samibnan were at my direction and personally dictated by me. I have reviewed the chart and agree that the record accurately reflects my personal performance of the history, physical exam, medical decision making, and the department course for this patient. I have also personally directed, reviewed, and agree with the discharge instructions and disposition.
[2018-09-10] MEDS ORDERED: (Novolin R) Insulin Human Regular 100 units/ml vial SC ONE (08:50)
[2018-09-10] MEDS ORDERED: (Novolin R) Insulin Human Regular 100 units/ml vial ONE (09:02)
[2018-09-10 09:19] LABS: B-TYPE NATRIURETIC PEPTIDE 3550 pg/mL (0-900)
--- NOTE | 2018-09-10 10:53 | CP.PCM.HP ---
History of Present Illness - History of Present Illness History of Present Illness: H&P for Dr. Rivera. HPI: Patient is a 63 y/o male with a PMhx of CHF, HTN, DM and hLD who presents to the ED with severe chest pain and SOB occurred last night around 8 pm while he was watching a ball game on TV at home. He describes the pain as 10/10 pressure/gas like in the center of his chest with radiation to his L upper back. He also had dry cough starting at the same time with the chest pain and SOB which resolved today. He did not try anything for the pain. He denies any headache, dizziness, diaphoresis, abdominal pain, nausea, vomiting, numbness, tingling, or slurred speech during his chest pain. He did not take any medications except "a cough syrup" he bought OTC for his cough. Patient reported similar symptoms May 2018. Patient states that he is compliant with his medications for his HTN and DM. He reports that his blood glucose level is around 300s and his systolic blood pressure occasionally goes up to 200s. Patient states that he can climb up 1 flight of stairs and walk up to 2 blocks without getting SOB. He sleeps with 2 pillows due to his GERD symptoms. PMhx: Type 2 Diabetes Mellitus, Hypertension, Hypercholesterolemia, GERD PShx: Denies. Meds: Metformin 500 mg PO BID (patient takes once daily-as he didn't know it was BID), Metoprolol Succinate XL 12.5 mg PO daily, Lisinopril 2.5 mg PO daily, Furosemide 40 mg PO daily, Crestor 5mg PO HS, Glimeride 4mg BID. All: NKDA Famhx: Mother- had HTN, suddenly at age 77, unknown cause. Father- had [place] 2x, at age 65 from [place]. Has 2 brothers and a sister, none of them has heart problems. SocHx: denies ever tobacco, alcohol, illicit drugs. Lives with his in an apartment. 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 Not current admission PMD: Dr. Woodward, [address] Full Code Proxy: Olga Yun [phone] Review of Systems: -Gen: No fever, No chills, No headache, No lethargy, No weakness. -HEENT: No dizziness, No change in vision, No change in hearing, No sore throat, No dysphagia, No nasal congestion, No mucous. -Cardio: +chest pain, No palpitations, No lower extremity edema, No orthopnea. -Resp: + cough, + dyspnea, No hemoptysis, No wheezing, No pain on inspiration. -GI: No abdominal pain, No nausea/vomiting, No diarrhea/constipation, No h ematochezia, No hematemesis. -: No dysuria, No urinary freq, No incontinence, No hematuria, No change in urinary stream. -MSK: No back pain, No muscle weakness, No radiating pain. -Skin: No itching, No rash, No lesions. -Neuro: No confusion, No numbness, No tingling, No focal weakness, No radicular pain, No syncope. -Psych: No anxiety, No depression, No H/I, No S/I, No hallucinations. Present on Admission - Present on Admission Any Indicators Present on Admission: Yes History of Uncontrolled Diabetes: Yes Past Patient History - Past Social History Smoking Status: Never Smoked - CARDIAC Hx Hypertension: Yes - ENDOCRINE/METABOLIC Hx Diabetes Mellitus Type 1: Yes - PSYCHIATRIC Hx Substance Use: No - SURGICAL HISTORY Hx Surgeries: No - ANESTHESIA Hx Anesthesia: No Hx Anesthesia Reactions: No Meds Allergies/Adverse Reactions: Allergies Allergy/AdvReac Type Severity Reaction Status Date / Time No Known Allergies Allergy Verified 09/10/18 06:05 Physical Exam - Constitutional Appears: Non-toxic, No Acute Distress - Head Exam Head Exam: ATRAUMATIC, NORMOCEPHALIC - Eye Exam Eye Exam: EOMI, Normal appearance, PERRL - ENT Exam ENT Exam: Mucous Membranes Moist, Normal Exam - Neck Exam Neck exam: Positive for: Full Rom, Normal Inspection. Negative for: Lymphadenopathy - Respiratory Exam Respiratory Exam: Clear to Auscultation Bilateral, NORMAL BREATHING PATTERN. absent: Chest Wall Tenderness, Rales, Rhonchi, Wheezes - Cardiovascular Exam Cardiovascular Exam: Tachycardia, +S1, +S2, Systolic Murmur (Best heard over the sternal border on the L). absent: JVD - GI/Abdominal Exam GI & Abdominal Exam: Normal Bowel Sounds, Soft. absent: Distended, Guarding, Rebound, Tenderness - Extremities Exam Extremities exam: Positive for: full ROM, normal capillary refill, normal inspection, pedal pulses present. Negative for: calf tenderness, pedal edema, tenderness - Neurological Exam Neurological exam: CN II-XII Intact, Normal Gait, Oriented x3 - Psychiatric Exam Psychiatric exam: Normal Affect, Normal Mood - Skin Skin Exam: Dry, Intact, Normal Color, Warm Results - Vital Signs Recent Vital Signs: Last Vital Signs Temp 98.3 F 09/10/18 05:56 Pulse 103 H 09/10/18 10:00 Resp 15 09/10/18 10:00 BP 123/93 H 09/10/18 10:00 Pulse Ox 95 09/10/18 08:58 - Labs Result Diagrams: 09/10/18 06:15 09/10/18 06:14 Labs: Laboratory Results - last 24 hr 09/10/18 09/10/18 09/10/18 06:14 06:15 06:15 WBC 7.7 RBC 5.19 Hgb 14.5 Hct 44.2 MCV 85.2 MCH 28.0 MCHC 32.9 L RDW 13.5 Plt Count 163 MPV 9.2 Neut % (Auto) 67.1 Lymph % (Auto) 23.9 Garland % (Auto) 7.8 Eos % (Auto) 0.4 Baso % (Auto) 0.8 Neut # (Auto) 5.2 Lymph # (Auto) 1.8 Garland # (Auto) 0.6 Eos # (Auto) 0.0 Baso # (Auto) 0.1 PT 12.1 INR 1.1 APTT 37 H Sodium 135 Potassium 4.4 Chloride 104 Carbon Dioxide 23 Anion Gap 12 BUN 19 Creatinine 0.9 Est GFR ( Amer) > 60 Est GFR (Non-Af Amer) > 60 POC Glucose (mg/dL) Random Glucose 342 H D Calcium 8.9 Phosphorus 2.9 Magnesium 1.9 Total Bilirubin 0.7 AST 202 H D ALT 170 H D Alkaline Phosphatase 159 H D Troponin I 0.0300 NT-Pro-B Natriuret Pep 3550 H Total Protein 6.2 L Albumin 3.6 Globulin 2.6 Albumin/Globulin Ratio 1.4 09/10/18 08:39 WBC RBC Hgb Hct MCV MCH MCHC RDW Plt Count MPV Neut % (Auto) Lymph % (Auto) Garland % (Auto) Eos % (Auto) Baso % (Auto) Neut # (Auto) Lymph # (Auto) Garland # (Auto) Eos # (Auto) Baso # (Auto) PT INR APTT Sodium Potassium Chloride Carbon Dioxide Anion Gap BUN Creatinine Est GFR ( Amer) Est GFR (Non-Af Amer) POC Glucose (mg/dL) 316 H Random Glucose Calcium Phosphorus Magnesium Total Bilirubin AST ALT Alkaline Phosphatase Troponin I NT-Pro-B Natriuret Pep Total Protein Albumin Globulin Albumin/Globulin Ratio Assessment & Plan - Assessment and Plan (Free Text) Plan: 63yoM PMH CHF, HTN, DM admitted for CP r/o ACS, likely CHF exacerbation Plan: CP r/o ACS, Likely 2/2 CHF - ECHO (01/13/18): LVEF 15-20% with moderate aortic regurgitation, moderate mitral regurgitation, and mild pulmonary hypertension. - FABIO neg x1, f/u Serial FABIO - BNP 3550, increased from 2760 previous admission - EKG sinus tachycardia @ 105, L axis deviation, non specific T wave abnormality - F/u Hgb A1c, TSH, Lipid panel - Cardio consulted: Dr. Chaudhry, help appreciated - Lasix 40 IVP daily Possible PNA - CXR: Suspected patchy pneumonia, right mid lung zone -Azithromycin 500mg PO x1, 250mg PO daily x4 days Diabetes Mellitus - Glimeperide 4mg BID - Lisinopril 2.5mg daily - Aspirin 81mg daily - Hold metformin - f/u Hgb A1c - Accuchecks [facility] - ISS - hypoglycemia protocol Hypertension - home Metoprolol XL 12.5mg PO daily - home Lasix 40 IVP daily - home Lisinopril 2.5 mg po daily - monitor vitals Hyperlipidemia - Home med Crestor 5mg PO HS - F/u lipid panel PPx - DVT: Heparin 5000u sc q8, SCDs - GI: not indicated - Diet: HHD Discussed with Dr. Rivera. Paulina Leavitt, PGY-1
--- NOTE | 2018-09-10 11:41 | RAD ---
HISTORY: sob, cp COMPARISON: Chest x-ray performed 05/30/18 TECHNIQUE: Chest PA and lateral, 2 views FINDINGS: LUNGS: Patchy opacities in the right mid lung zone suspicious for pneumonia. Please note that chest x-ray has limited sensitivity for the detection of pulmonary masses. PLEURA: No significant pleural effusion identified. No definite pneumothorax . CARDIOVASCULAR: Borderline cardiomegaly. Atherosclerotic calcifications of the aorta. OSSEOUS STRUCTURES: No acute osseous abnormality identified. Degenerative changes. VISUALIZED UPPER ABDOMEN: Unremarkable. OTHER FINDINGS: None. IMPRESSION: Suspected patchy pneumonia, right midlung zone.
[2018-09-10] MEDS ORDERED: Dextrose 50% SYRINGE Inj (50 ml) IV PRN (11:55)
[2018-09-10] MEDS ORDERED: Glucagon Recombinant 1 mg Inj IM PRN (11:55)
[2018-09-10 13:16] LABS: CK-MB 1.37 ng/mL (0.0-3.38); TROPONIN I 0.029 ng/mL (0.00-0.120)
[2018-09-10 16:28] VITALS: RESP 20
[2018-09-10 17:43] LABS: CK-MB 1.25 ng/mL (0.0-3.38); TROPONIN I 0.029 ng/mL (0.00-0.120)
[2018-09-10] MEDS: (Novolin R) Insulin Human Regular 100 units/ml vial SC SCH ×2 (17:44→21:40)
[2018-09-10] MEDS: Metoprolol Succinate 12.5 mg XL Tab PO SCH (17:47)
[2018-09-10] MEDS ORDERED: Rosuvastatin Calcium 2.5 mg Tab PO SCH (22:00)
[2018-09-11 08:01] LABS: BASO % 0.6 % (0.0-2.0); EOS # 0.1 K/uL (0.0-0.7); EOS % 0.9 % (0.0-4.0); HEMOGLOBIN 14.9 g/dL (12.0-18.0); LYMPH # 1.8 K/uL (1.0-4.3); LYMPH % 26.4 % (20.0-40.0); MEAN CELL VOLUME 85.9 fL (80.0-94.0); MEAN CORPUSCULAR HEMOGLOBIN 27.7 pg (27.0-31.0); MEAN CORPUSCULAR HGB CONC 32.3 g/dL (33.0-37.0); MEAN PLATELET VOLUME 9.6 fL (7.2-11.7); MONO # 0.6 K/uL (0.0-0.8); MONO % 8.5 % (0.0-10.0); NEUT # 4.2 K/uL (1.8-7.0); NEUT % 63.6 % (50.0-75.0); RBC 5.36 Mil/uL (4.40-5.90); RED CELL DISTRIBUTION WIDTH 13.6 % (11.5-14.5); WHITE BLOOD COUNT 6.6 K/uL (4.8-10.8)
[2018-09-11 08:19] LABS: B-TYPE NATRIURETIC PEPTIDE 3920 pg/mL (0-900)
[2018-09-11 08:22] LABS: ALB/GLOB RATIO 1.5 (1.0-2.1); ALBUMIN 3.7 g/dL (3.5-5.0); ALT/SGPT 166 U/L (21-72); AST/SGOT 135 U/L (17-59); BLOOD UREA NITROGEN 27 mg/dL (9-20); GFR NON-AFRICAN AMERICAN > 60; HDL CHOLESTEROL 40 mg/dL (30-70)
[2018-09-11 08:23] LABS: LDL CHOLESTEROL 84 mg/dL (0-129)
[2018-09-11] MEDS: (Novolin R) Insulin Human Regular 100 units/ml vial SC SCH ×4 (08:28→21:17)
[2018-09-11] MEDS: Metoprolol Succinate 12.5 mg XL Tab PO SCH (11:31)
--- NOTE | 2018-09-11 14:28 | CP.PCM.PN ---
Subjective - Date & Time of Evaluation Date of Evaluation: 09/11/18 Time of Evaluation: 08:00 - Subjective Subjective: PGY-[address] Rivera Patient is seen and examined at bedside. Patient states feeling better today, states not feeling chest pain or SOB. Patient is ambulating and tolerating diet. Denies any other complaints. Patient had echo done earlier today. Objective - Vital Signs/Intake and Output Vital Signs (last 24 hours): Temp Pulse Resp BP Pulse Ox 97.7 F 105 H 20 112/72 97 09/11/18 07:05 09/11/18 08:00 09/11/18 07:05 09/11/18 11:32 09/11/18 12:36 - Medications Medications: Current Medications Acetaminophen (Tylenol 325mg Tab) 650 mg PO Q6 PRN PRN Reason: Pain, moderate (4-7) Aspirin (Aspirin Chewable) 81 mg PO DAILY [facility] Last Admin: 09/11/18 11:36 Dose: 81 mg Azithromycin (Zithromax) 250 mg PO DAILY [facility]; Protocol Stop: 09/14/18 23:00 Last Admin: 09/11/18 11:31 Dose: 250 mg Dextrose (Dextrose 50% Inj) 0 ml IV STAT PRN; Protocol PRN Reason: Hypoglycemia Protocol Dextrose (Glutose 15) 0 gm PO ONCE PRN; Protocol PRN Reason: Hypoglycemia Protocol Furosemide (Lasix) 40 mg IVP DAILY [facility] Last Admin: 09/11/18 11:32 Dose: 40 mg Glimepiride (Amaryl) 4 mg PO BIDAC [facility] Last Admin: 09/11/18 08:28 Dose: 4 mg Glucagon (Glucagen Diagnostic Kit) 0 mg IM STAT PRN; Protocol PRN Reason: Hypoglycemia Protocol Heparin Sodium (Porcine) (Heparin) 5,000 units SC Q8 [facility] Last Admin: 09/11/18 14:04 Dose: 5,000 units Dextrose (Dextrose 5% In Water 1000 Ml) 1,000 mls @ 0 mls/hr IV .Q0M PRN; Protocol PRN Reason: Hypoglycemia Protocol Insulin Human Regular (Novolin R) 0 unit SC ACHS [facility]; Protocol Lisinopril (Zestril) 2.5 mg PO DAILY [facility] Last Admin: 09/11/18 11:31 Dose: 2.5 mg Metoprolol Succinate (Toprol Xl) 12.5 mg PO DAILY [facility] Last Admin: 09/11/18 11:31 Dose: 12.5 mg Rosuvastatin Calcium (Crestor) 5 mg PO HS [facility] Last Admin: 09/10/18 21:43 Dose: 5 mg - Labs Labs: 09/11/18 07:51 09/11/18 07:51 PT 12.1 SECONDS (9.7-12.2) 09/10/18 06:15 INR 1.1 09/10/18 06:15 APTT 37 SECONDS (21-34) H 09/10/18 06:15 - Constitutional Appears: Non-toxic, No Acute Distress - Head Exam Head Exam: ATRAUMATIC, NORMAL INSPECTION, NORMOCEPHALIC - Eye Exam Eye Exam: Normal appearance - Respiratory Exam Respiratory Exam: Clear to Ausculation Bilateral, NORMAL BREATHING PATTERN - Cardiovascular Exam Cardiovascular Exam: REGULAR RHYTHM, +S1, +S2 - GI/Abdominal Exam GI & Abdominal Exam: Soft - Extremities Exam Extremities Exam: Full ROM - Back Exam Back Exam: NORMAL INSPECTION - Neurological Exam Neurological Exam: Alert, Awake, Oriented x3 - Psychiatric Exam Psychiatric exam: Normal Affect, Normal Mood - Skin Skin Exam: Dry, Intact, Normal Color, Warm Assessment and Plan - Assessment and Plan (Free Text) Assessment: 63yoM PMH CHF, HTN, DM admitted for CP r/o ACS, likely CHF exacerbation. trops negative x 3. Cardio on board, pending echo, last echo show low EF, plan for nuclear stress test tomorrow. Plan: CP r/o ACS, Likely 2/2 CHF - ECHO (01/13/18): LVEF 15-20% with moderate aortic regurgitation, moderate mitral regurgitation, and mild pulmonary hypertension. - Repeat echo - pending official results - FABIO neg x 3 - BNP 3550, increased from 2760 previous admission - EKG sinus tachycardia @ 105, L axis deviation, non specific T wave abnormality - TGC 153, otherwise lipid panel wnl - TSH wnl - Cardio consulted: Dr. Chaudhry, help appreciated - Patient to go for nuclear stress test in am, NPO after midnight for procedure - Lasix 40 IVP daily Possible PNA - CXR: Suspected patchy pneumonia, right mid lung zone -Azithromycin 500mg PO x1, 250mg PO daily x4 days Diabetes Mellitus - Glimeperide 4mg BID - Lisinopril 2.5mg daily - Aspirin 81mg daily - Hold metformin - f/u Hgb A1c - 15.9 - Accuchecks ACHS - ISS changed to high dose - hypoglycemia protocol Hypertension - home Metoprolol XL 12.5mg PO daily - home Lasix 40 IVP daily - home Lisinopril 2.5 mg po daily - monitor vitals Hyperlipidemia - Home med Crestor 5mg PO HS PPx - DVT: Heparin 5000u sc q8, SCDs - GI: not indicated - Diet: HHD, NPO after midnight Plan discussed with Dr Nicole Horn, PGY-1
--- NOTE | 2018-09-12 06:11 | CP.PCM.CON ---
History of Present Illness - History of Present Illness History of Present Illness: CC: Dyspnea with exertion HPI: Patient is a 63 y/o male with a PMhx of CHF, HTN, DM and hLD who presents to the ED with severe chest pain and SOB occurred last night around 8 pm while he was watching a ball game on TV at home. He describes the pain as 10/10 pressure/gas like in the center of his chest with radiation to his L upper back. He also had dry cough starting at the same time with the chest pain and SOB which resolved today. He did not try anything for the pain. He denies any headache, dizziness, diaphoresis, abdominal pain, nausea, vomiting, numbness, tingling, or slurred speech during his chest pain. He did not take any medications except "a cough syrup" he bought OTC for his cough. Patient reported similar symptoms May 2018. Patient states that he is compliant with his medications for his HTN and DM. He reports that his blood glucose level is around 300s and his systolic blood pressure occasionally goes up to 200s. Patient states that he can climb up 1 flight of stairs and walk up to 2 blocks without getting SOB. He sleeps with 2 pillows due to his GERD symptoms. PMhx: Type 2 Diabetes Mellitus, Hypertension, Hypercholesterolemia, GERD PShx: Denies. Meds: Metformin 500 mg PO BID (patient takes once daily-as he didn't know it was BID), Metoprolol Succinate XL 12.5 mg PO daily, Lisinopril 2.5 mg PO daily, Furosemide 40 mg PO daily, Crestor 5mg PO HS, Glimeride 4mg BID. All: NKDA Famhx: Mother- had HTN, suddenly at age 77, unknown cause. Father- had [place] 2x, at age 65 from [place]. Has 2 brothers and a sister, none of them has heart problems. SocHx: denies ever tobacco, alcohol, illicit drugs. Lives with his in an apartment. 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 Not current admission PMD: Dr. Woodward, [address] Full Code Proxy: Olga Yun [phone] Review of Systems: -Gen: No fever, No chills, No headache, No lethargy, No weakness. -HEENT: No dizziness, No change in vision, No change in hearing, No sore throat, No dysphagia, No nasal congestion, No mucous. -Cardio: +chest pain, No palpitations, No lower extremity edema, No orthopnea. -Resp: + cough, + dyspnea, No hemoptysis, No wheezing, No pain on inspiration. -GI: No abdominal pain, No nausea/vomiting, No diarrhea/constipation, No hematochezia, No hematemesis. -: No dysuria, No urinary freq, No incontinence, No hematuria, No change in urinary stream. -MSK: No back pain, No muscle weakness, No radiating pain. -Skin: No itching, No rash, No lesions. -Neuro: No confusion, No numbness, No tingling, No focal weakness, No radicular pain, No syncope. -Psych: No anxiety, No depression, No H/I, No S/I, No hallucinations. Present on Admission - Present on Admission Any Indicators Present on Admission: Yes History of Uncontrolled Diabetes: Yes Physical Exam - Constitutional Appears: Non-toxic, No Acute Distress - Head Exam Head Exam: ATRAUMATIC, NORMOCEPHALIC - Eye Exam Eye Exam: EOMI, Normal appearance, PERRL - ENT Exam ENT Exam: Mucous Membranes Moist, Normal Exam - Neck Exam Neck exam: Positive for: Full Rom, Normal Inspection. Negative for: Lymphadenopathy - Respiratory Exam Respiratory Exam: Clear to Auscultation Bilateral, NORMAL BREATHING PATTERN. absent: Chest Wall Tenderness, Rales, Rhonchi, Wheezes - Cardiovascular Exam Cardiovascular Exam: Tachycardia, +S1, +S2, Systolic Murmur (Best heard over the sternal border on the L). absent: JVD - GI/Abdominal Exam GI & Abdominal Exam: Normal Bowel Sounds, Soft. absent: Distended, Guarding, Rebound, Tenderness - Extremities Exam Extremities exam: Positive for: full ROM, normal capillary refill, normal inspection, pedal pulses present. Negative for: calf tenderness, pedal edema, tenderness - Neurological Exam Neurological exam: CN II-XII Intact, Normal Gait, Oriented x3 - Psychiatric Exam Psychiatric exam: Normal Affect, Normal Mood - Skin Skin Exam: Dry, Intact, Normal Color, Warm Results - Vital Signs Recent Vital Signs: Last Vital Signs Temp 98.3 F 09/10/18 05:56 Pulse 103 H 04/08/19 10:00 Resp 15 09/10/18 10:00 BP 123/93 H 09/10/18 10:00 Pulse Ox 95 09/10/18 08:58 - Labs Result Diagrams: 09/10/18 06:15 09/10/18 06:14 Labs: Laboratory Results - last 24 hr 09/10/18 09/10/18 09/10/18 06:14 06:15 06:15 WBC 7.7 RBC 5.19 Hgb 14.5 Hct 44.2 MCV 85.2 MCH 28.0 MCHC 32.9 L RDW 13.5 Plt Count 163 MPV 9.2 Neut % (Auto) 67.1 Lymph % (Auto) 23.9 [place] % (Auto) 7.8 Eos % (Auto) 0.4 Baso % (Auto) 0.8 Neut # (Auto) 5.2 Lymph # (Auto) 1.8 [place] # (Auto) 0.6 Eos # (Auto) 0.0 Baso # (Auto) 0.1 PT 12.1 INR 1.1 APTT 37 H Sodium 135 Potassium 4.4 Chloride 104 Carbon Dioxide 23 Anion Gap 12 BUN 19 Creatinine 0.9 Est GFR ( Amer) > 60 Est GFR (Non-Af Amer) > 60 POC Glucose (mg/dL) Random Glucose 342 H D Calcium 8.9 Phosphorus 2.9 Magnesium 1.9 Total Bilirubin 0.7 AST 202 H D ALT 170 H D Alkaline Phosphatase 159 H D Troponin I 0.0300 NT-Pro-B Natriuret Pep 3550 H Total Protein 6.2 L Albumin 3.6 Globulin 2.6 Albumin/Globulin Ratio 1.4 09/10/18 08:39 WBC RBC Hgb Hct MCV MCH MCHC RDW Plt Count MPV Neut % (Auto) Lymph % (Auto) [place] % (Auto) Eos % (Auto) Baso % (Auto) Neut # (Auto) Lymph # (Auto) [place] # (Auto) Eos # (Auto) Baso # (Auto) PT INR APTT Sodium Potassium Chloride Carbon Dioxide Anion Gap BUN Creatinine Est GFR ( Amer) Est GFR (Non-Af Amer) POC Glucose (mg/dL) 316 H Random Glucose Calcium Phosphorus Magnesium Total Bilirubin AST ALT Alkaline Phosphatase Troponin I NT-Pro-B Natriuret Pep Total Protein Albumin Globulin Albumin/Globulin Ratio Assessment & Plan - Assessment and Plan (Free Text) Plan: 63yoM PMH CHF, HTN, DM admitted for CP r/o ACS, likely CHF exacerbation Plan: CP r/o ACS, Likely 2/2 CHF - ECHO (01/13/18): LVEF 15-20% with moderate aortic regurgitation, moderate mitral regurgitation, and mild pulmonary hypertension. - FABIO neg x1, f/u Serial FABIO - BNP 3550, increased from 2760 previous admission - EKG sinus tachycardia @ 105, L axis deviation, non specific T wave abnormality - F/u Hgb A1c, TSH, Lipid panel - Lasix 40 IVP daily Possible PNA - CXR: Suspected patchy pneumonia, right mid lung zone -Azithromycin 500mg PO x1, 250mg PO daily x4 days Diabetes Mellitus - Glimeperide 4mg BID - Lisinopril 2.5mg daily - Aspirin 81mg daily - Hold metformin - f/u Hgb A1c - Accuchecks ACHS - ISS - hypoglycemia protocol Hypertension - home Metoprolol XL 12.5mg PO daily - home Lasix 40 IVP daily - home Lisinopril 2.5 mg po daily - monitor vitals Hyperlipidemia - Home med Crestor 5mg PO HS - F/u lipid panel PPx - DVT: Heparin 5000u sc q8, SCDs - GI: not indicated - Diet: HHD Case d/w the emergency medical services coordinator Patient for stress test in am Past Patient History - Past Social History Smoking Status: Never Smoked - CARDIAC Hx Hypertension: Yes - ENDOCRINE/METABOLIC Hx Diabetes Mellitus Type 1: Yes - PSYCHIATRIC Hx Substance Use: No - SURGICAL HISTORY Hx Surgeries: No - ANESTHESIA Hx Anesthesia: No Hx Anesthesia Reactions: No Meds Allergies/Adverse Reactions: Allergies Allergy/AdvReac Type Severity Reaction Status Date / Time No Known Allergies Allergy Verified 09/10/18 06:05 - Medications Medications: Current Medications Acetaminophen (Tylenol 325mg Tab) 650 mg PO Q6 PRN PRN Reason: Pain, moderate (4-7) Aspirin (Aspirin Chewable) 81 mg PO DAILY [facility] Last Admin: 09/11/18 11:36 Dose: 81 mg Azithromycin (Zithromax) 250 mg PO DAILY [facility]; Protocol Stop: 09/14/18 23:00 Last Admin: 09/11/18 11:31 Dose: 250 mg Dextrose (Dextrose 50% Inj) 0 ml IV STAT PRN; Protocol PRN Reason: Hypoglycemia Protocol Dextrose (Glutose 15) 0 gm PO ONCE PRN; Protocol PRN Reason: Hypoglycemia Protocol Furosemide (Lasix) 40 mg IVP DAILY [facility] Last Admin: 09/11/18 11:32 Dose: 40 mg Glimepiride (Amaryl) 4 mg PO BIDAC [facility] Last Admin: 09/11/18 17:14 Dose: 4 mg Glucagon (Glucagen Diagnostic Kit) 0 mg IM STAT PRN; Protocol PRN Reason: Hypoglycemia Protocol Heparin Sodium (Porcine) (Heparin) 5,000 units SC Q8 [facility] Last Admin: 09/12/18 05:22 Dose: 5,000 units Dextrose (Dextrose 5% In Water 1000 Ml) 1,000 mls @ 0 mls/hr IV .Q0M PRN; Protocol PRN Reason: Hypoglycemia Protocol Insulin Human Regular (Novolin R) 0 unit SC ACHS [facility]; Protocol Last Admin: 09/11/18 21:17 Dose: Not Given Lisinopril (Zestril) 2.5 mg PO DAILY [facility] Last Admin: 09/11/18 11:31 Dose: 2.5 mg Metoprolol Succinate (Toprol Xl) 12.5 mg PO DAILY [facility] Last Admin: 09/11/18 11:31 Dose: 12.5 mg Rosuvastatin Calcium (Crestor) 5 mg PO HS [facility] Last Admin: 09/11/18 21:51 Dose: 5 mg Results - Vital Signs Recent Vital Signs: Last Vital Signs Temp 98.3 F 09/12/18 04:32 Pulse 94 H 09/12/18 04:32 Resp 20 09/12/18 04:32 BP 117/83 09/12/18 04:32 Pulse Ox 99 09/12/18 04:32 - Labs Result Diagrams: 09/11/18 07:51 09/11/18 07:51 Labs: Laboratory Results - last 24 hr 09/11/18 09/11/18 09/11/18 06:55 07:51 07:51 WBC 6.6 RBC 5.36 Hgb 14.9 Hct 46.0 MCV 85.9 MCH 27.7 MCHC 32.3 L RDW 13.6 Plt Count 174 MPV 9.6 Neut % (Auto) 63.6 Lymph % (Auto) 26.4 [place] % (Auto) 8.5 Eos % (Auto) 0.9 Baso % (Auto) 0.6 Neut # (Auto) 4.2 Lymph # (Auto) 1.8 [place] # (Auto) 0.6 Eos # (Auto) 0.1 Baso # (Auto) 0.0 Sodium 132 Potassium 4.6 Chloride 100 Carbon Dioxide 24 Anion Gap 13 BUN 27 H Creatinine 1.1 Est GFR ( Amer) > 60 Est GFR (Non-Af Amer) > 60 POC Glucose (mg/dL) 442 H* Random Glucose 432 H* D Hemoglobin A1c Calcium 9.0 Phosphorus 2.9 Magnesium 1.9 Total Bilirubin 0.7 AST 135 H D ALT 166 H Alkaline Phosphatase 134 H NT-Pro-B Natriuret Pep 3920 H Total Protein 6.2 L Albumin 3.7 Globulin 2.5 Albumin/Globulin Ratio 1.5 Triglycerides 154 H Cholesterol 134 LDL Cholesterol Direct 84 HDL Cholesterol 40 TSH 3rd Generation 2.90 09/11/18 09/11/18 09/11/18 07:51 16:16 21:12 WBC RBC Hgb Hct MCV MCH MCHC RDW Plt Count MPV Neut % (Auto) Lymph % (Auto) [place] % (Auto) Eos % (Auto) Baso % (Auto) Neut # (Auto) Lymph # (Auto) [place] # (Auto) Eos # (Auto) Baso # (Auto) Sodium Potassium Chloride Carbon Dioxide Anion Gap BUN Creatinine Est GFR ( Amer) Est GFR (Non-Af Amer) POC Glucose (mg/dL) 275 H 272 H Random Glucose Hemoglobin A1c 15.9 H D Calcium Phosphorus Magnesium Total Bilirubin AST ALT Alkaline Phosphatase NT-Pro-B Natriuret Pep Total Protein Albumin Globulin Albumin/Globulin Ratio Triglycerides Cholesterol LDL Cholesterol Direct HDL Cholesterol TSH 3rd Generation
[2018-09-12 06:27] LABS: ALB/GLOB RATIO 1.4 (1.0-2.1); ALBUMIN 3.4 g/dL (3.5-5.0); ALT/SGPT 118 U/L (21-72); AST/SGOT 77 U/L (17-59); BLOOD UREA NITROGEN 24 mg/dL (9-20); CALCIUM 8.7 mg/dl (8.6-10.4); GFR NON-AFRICAN AMERICAN > 60
[2018-09-12 07:11] LABS: BASO % 0.6 % (0.0-2.0); EOS # 0.1 K/uL (0.0-0.7); EOS % 1.6 % (0.0-4.0); HEMOGLOBIN 14.6 g/dL (12.0-18.0); LYMPH # 2.5 K/uL (1.0-4.3); MEAN CELL VOLUME 85.4 fL (80.0-94.0); MEAN CORPUSCULAR HEMOGLOBIN 28.5 pg (27.0-31.0); MEAN CORPUSCULAR HGB CONC 33.4 g/dL (33.0-37.0); MEAN PLATELET VOLUME 9.6 fL (7.2-11.7); MONO # 0.7 K/uL (0.0-0.8); MONO % 8.8 % (0.0-10.0); NEUT # 4.1 K/uL (1.8-7.0); NRBC % 0.1 % (0.0-2.0); RBC 5.13 Mil/uL (4.40-5.90); RED CELL DISTRIBUTION WIDTH 13.5 % (11.5-14.5); WHITE BLOOD COUNT 7.4 K/uL (4.8-10.8)
[2018-09-12] MEDS: (Novolin R) Insulin Human Regular 100 units/ml vial SC SCH ×2 (07:30→11:17)
[2018-09-12] MEDS ORDERED: Caffeine Citrated **INJ** 20 MG/ML IV ONE (07:51)
[2018-09-12 08:08] VITALS: TEMP 97.5; O2SAT 97
[2018-09-12] MEDS: Metoprolol Succinate 12.5 mg XL Tab PO SCH (11:00)
[2018-09-12 11:22] VITALS: BP 108/70
--- NOTE | 2018-09-12 11:52 | CP.PCM.PN ---
<Darlene Bae - Last Filed: 09/12/18 16:50> Subjective - Date & Time of Evaluation Date of Evaluation: 09/12/18 Time of Evaluation: 11:49 - Subjective Subjective: Progress note for Dr. Chaudhry Patient was seen and examined at bedside in no acute distress. Patient reports he is feeling well and denies chest pain, palpitations, dyspnea, dizziness, changes in vision, n/v, leg pain. Objective - Vital Signs/Intake and Output Vital Signs (last 24 hours): Temp Pulse Resp BP Pulse Ox 97.5 F L 96 H 20 108/70 97 09/12/18 07:00 09/12/18 07:00 09/12/18 07:00 09/12/18 11:18 09/12/18 07:00 - Medications Medications: Current Medications Acetaminophen (Tylenol 325mg Tab) 650 mg PO Q6 PRN PRN Reason: Pain, moderate (4-7) Aspirin (Aspirin Chewable) [address] [facility] Last Admin: 09/12/18 11:18 Dose: 81 mg Azithromycin (Zithromax) [address] [facility]; Protocol Stop: 09/14/18 23:00 Last Admin: 09/12/18 11:19 Dose: 250 mg Dextrose (Dextrose 50% Inj) 0 ml IV STAT PRN; Protocol PRN Reason: Hypoglycemia Protocol Dextrose (Glutose 15) 0 gm PO ONCE PRN; Protocol PRN Reason: Hypoglycemia Protocol Furosemide (Lasix) [address] [facility] Last Admin: 09/12/18 11:18 Dose: 40 mg Glimepiride (Amaryl) [address] [facility] Last Admin: 09/12/18 11:20 Dose: 4 mg Glucagon (Glucagen Diagnostic Kit) 0 mg IM STAT PRN; Protocol PRN Reason: Hypoglycemia Protocol Heparin Sodium (Porcine) (Heparin) 5,[address] [facility] Last Admin: 09/12/18 05:22 Dose: 5,000 units Dextrose (Dextrose 5% In Water 1000 Ml) 1,000 mls @ 0 mls/hr IV .Q0M PRN; Protocol PRN Reason: Hypoglycemia Protocol Insulin Human Regular (Novolin R) [address] [facility]; Protocol Last Admin: 09/12/18 11:17 Dose: 12 units Lisinopril (Zestril) 2.[address] [facility] Last Admin: 09/12/18 11:20 Dose: 2.5 mg Metoprolol Succinate (Toprol Xl) 12.[address] [facility] Last Admin: 09/11/18 11:31 Dose: 12.5 mg Rosuvastatin Calcium (Crestor) [address] [facility] Last Admin: 09/11/18 21:51 Dose: 5 mg - Labs Labs: 09/12/18 06:04 09/12/18 06:04 PT 12.1 SECONDS (9.7-12.2) 09/10/18 06:15 INR 1.1 09/10/18 06:15 APTT 37 SECONDS (21-34) H 09/10/18 06:15 - Constitutional Appears: No Acute Distress - Head Exam Head Exam: ATRAUMATIC, NORMAL INSPECTION - Eye Exam Eye Exam: EOMI, Normal appearance - ENT Exam ENT Exam: Mucous Membranes Moist - Respiratory Exam Respiratory Exam: Clear to Ausculation Bilateral, NORMAL BREATHING PATTERN. absent: Rales, Rhonchi, Wheezes - Cardiovascular Exam Cardiovascular Exam: REGULAR RHYTHM, +S1, +S2 - GI/Abdominal Exam GI & Abdominal Exam: Soft, Normal Bowel Sounds. absent: Distended, Firm, Tenderness - Extremities Exam Extremities Exam: Normal Inspection. absent: Pedal Edema - Neurological Exam Neurological Exam: Alert, Awake, Oriented x3 - Psychiatric Exam Psychiatric exam: Normal Affect, Normal Mood - Skin Skin Exam: Dry, Normal Color, Warm Assessment and Plan - Assessment and Plan (Free Text) Plan: 63 year old male with a history of CHF, HTN, DM and HLD who presents to the ED with severe chest pain and SOB. Chest pain - Hx of CHF - ECHO (01/13/18): LVEF 15-20% with moderate aortic regurgitation, moderate mitral regurgitation, and mild pulmonary hypertension. - Troponin: negative, 0.0300, 0.0290, 0.0290 - BNP 3550, 3920 - EKG: sinus tachycardia @105, L axis deviation, non specific T wave abnormality - Stress test (09/12/18): apical reversible ischemia; abnormal stress test *Patient was discharged per primary team. Patient must follow up with Dr. Chaudhry within 1 week for further evaluation and intervention. If symptoms reoccur or worsen, patient should return to the nearest ER. Hypertension - Continue Metoprolol XL 12.5mg PO daily, Lasix 40 IVP daily, Lisinopril 2.5 mg PO daily Case discussed with Dr. Isidoro Barragan, PGY2 <Baljinder Chaudhry - Last Filed: 09/13/18 06:07> Objective - Vital Signs/Intake and Output Vital Signs (last 24 hours): Temp Pulse Resp BP Pulse Ox 97.5 F L 98 H 20 108/70 97 09/12/18 07:00 09/12/18 07:30 09/12/18 07:00 09/12/18 11:18 09/12/18 12:51 - Labs Labs: 09/12/18 06:04 09/12/18 06:04 PT 12.1 SECONDS (9.7-12.2) 09/10/18 06:15 INR 1.1 09/10/18 06:15 APTT 37 SECONDS (21-34) H 09/10/18 06:15 Assessment and Plan - Assessment and Plan (Free Text) Plan: Patient seen and personally evaluated by me. Plan of care d/w the medical res ident and as documented
[2018-09-12 11:58] VITALS: PULSE 98
--- NOTE | 2018-09-12 12:16 | CP.PCM.DIS ---
Provider - Provider Date of Admission: 09/10/18 08:59 Attending physician: David Rivera Jr, MD Consults: 09/10/18 11:50 Cardiology Consult Routine Comment: Consulting Provider: Baljinder Chaudhry Consulting Physician: Baljinder Chaudhry Reason for Consult: Chest pain, hx HFrEF Time Spent in preparation of Discharge (in minutes): 45 Hospital Course - Lab Results Lab Results: Most Recent Lab Values WBC 7.4 K/uL (4.8-10.8) 09/12/18 06:04 RBC 5.13 Mil/uL (4.40-5.90) 09/12/18 06:04 Hgb 14.6 g/dL (12.0-18.0) 09/12/18 06:04 Hct 43.8 % (35.0-51.0) 09/12/18 06:04 MCV 85.4 fL (80.0-94.0) 09/12/18 06:04 MCH 28.5 pg (27.0-31.0) 09/12/18 06:04 MCHC 33.4 g/dL (33.0-37.0) 09/12/18 06:04 RDW 13.5 % (11.5-14.5) 09/12/18 06:04 Plt Count 168 K/uL (130-400) 09/12/18 06:04 MPV 9.6 fL (7.2-11.7) 09/12/18 06:04 Neut % (Auto) 55.0 % (50.0-75.0) 09/12/18 06:04 Lymph % (Auto) 34.0 % (20.0-40.0) 09/12/18 06:04 [place] % (Auto) 8.8 % (0.0-10.0) 09/12/18 06:04 Eos % (Auto) 1.6 % (0.0-4.0) 09/12/18 06:04 Baso % (Auto) 0.6 % (0.0-2.0) 09/12/18 06:04 Neut # (Auto) 4.1 K/uL (1.8-7.0) 09/12/18 06:04 Lymph # (Auto) 2.5 K/uL (1.0-4.3) 09/12/18 06:04 [place] # (Auto) 0.7 K/uL (0.0-0.8) 09/12/18 06:04 Eos # (Auto) 0.1 K/uL (0.0-0.7) 09/12/18 06:04 Baso # (Auto) 0.0 K/uL (0.0-0.2) 09/12/18 06:04 PT 12.1 SECONDS (9.7-12.2) 09/10/18 06:15 INR 1.1 09/10/18 06:15 APTT 37 SECONDS (21-34) H 09/10/18 06:15 Sodium 133 mmol/L (132-148) 09/12/18 06:04 Potassium 4.2 mmol/L (3.6-5.2) 09/12/18 06:04 Chloride 102 mmol/L (98-107) 09/12/18 06:04 Carbon Dioxide 25 mmol/L (22-30) 09/12/18 06:04 Anion Gap 10 (10-20) 09/12/18 06:04 BUN 24 mg/dL (9-20) H 09/12/18 06:04 Creatinine 1.0 mg/dL (0.8-1.5) 09/12/18 06:04 Est GFR ( Amer) > 60 09/12/18 06:04 Est GFR (Non-Af Amer) > 60 09/12/18 06:04 POC Glucose (mg/dL) 272 mg/dL (65-110) H 09/11/18 21:12 Random Glucose 238 mg/dL (75-110) H D 09/12/18 06:04 Hemoglobin A1c 15.9 % (4.2-6.5) H D 09/11/18 07:51 Calcium 8.7 mg/dl (8.6-10.4) 09/12/18 06:04 Phosphorus 3.3 mg/dL (2.5-4.5) 09/12/18 06:04 Magnesium 1.9 mg/dL (1.6-2.3) 09/12/18 06:04 Total Bilirubin 0.6 mg/dL (0.2-1.3) 09/12/18 06:04 AST 77 U/L (17-59) H D 09/12/18 06:04 ALT 118 U/L (21-72) H D 09/12/18 06:04 Alkaline Phosphatase 100 U/L (38-126) 09/12/18 06:04 Total Creatine Kinase 65 U/L (55-170) 09/10/18 16:59 CK-MB (Mass) 1.25 ng/mL (0.0-3.38) 09/10/18 16:59 Troponin I 0.0290 ng/mL (0.00-0.120) 09/10/18 16:59 NT-Pro-B Natriuret Pep 3920 pg/mL (0-900) H 09/11/18 07:51 Total Protein 5.8 g/dL (6.3-8.3) L 09/12/18 06:04 Albumin 3.4 g/dL (3.5-5.0) L 09/12/18 06:04 Globulin 2.4 gm/dL (2.2-3.9) 09/12/18 06:04 Albumin/Globulin Ratio 1.4 (1.0-2.1) 09/12/18 06:04 Triglycerides 154 mg/dL (0-149) H 09/11/18 07:51 Cholesterol 134 mg/dL (0-199) 09/11/18 07:51 LDL Cholesterol Direct 84 mg/dL (0-129) 09/11/18 07:51 HDL Cholesterol 40 mg/dL (30-70) 09/11/18 07:51 TSH 3rd Generation 2.90 mIU/L (0.46-4.68) 09/11/18 07:51 - Hospital Course Hospital Course: Upon Admission: Patient is a 63 y/o male with a PMhx of CHF, HTN, DM and hLD who presents to the ED with severe chest pain and SOB occurred last night around 8 pm while he was watching a ball game on TV at home. He describes the pain as 10/10 pressure/gas like in the center of his chest with radiation to his L upper back. He also had dry cough starting at the same time with the chest pain and SOB which resolved today. He did not try anything for the pain. He denies any headache, dizziness, diaphoresis, abdominal pain, nausea, vomiting, numbness, tingling, or slurred speech during his chest pain. He did not take any medications except "a cough syrup" he bought OTC for his cough. Patient reported similar symptoms May 2018. Patient states that he is compliant with his medications for his HTN and DM. He reports that his blood glucose level is around 300s and his systolic blood pressure occasionally goes up to 200s. Patient states that he can climb up 1 flight of stairs and walk up to 2 blocks without getting SOB. He sleeps with 2 pillows due to his GERD symptoms. Hospital Course: Patient was admitted for chest pain r/o ACS. Troponins were negative and EKG unchanged. Cardiology was consulted and recommended stress test. Patient received a stress test with findings that were reviewed by Dr. Chaudhry. He recommended outpatient cardiac cath. Patient was deemed stable for discharge. Upon Discharge: Patient was deemed stable for discharge to home. Patient is requiring cardiac cath with Dr. Chaudhry as outpatient. Patient was given instructions to follow up with Dr. Chaudhry and to take medications as prescribed. Patient understood instructions and agreed. Discharge Exam - Head Exam Head Exam: ATRAUMATIC, NORMAL INSPECTION, NORMOCEPHALIC - Eye Exam Eye Exam: EOMI, Normal appearance - Respiratory Exam Respiratory Exam: Clear to PA & Lateral, NORMAL BREATHING PATTERN, UNREMARKABLE - Cardiovascular Exam Cardiovascular Exam: REGULAR RHYTHM, +S1, +S2 - GI/Abdominal Exam GI & Abdominal Exam: Normal Bowel Sounds, Tenderness, Unremarkable. absent: Distended, Firm - Extremities Exam Extremities exam: normal inspection - Back Exam Back exam: NORMAL INSPECTION - Neurological Exam Neurological exam: Alert, CN II-XII Intact, Oriented x3 - Psychiatric Exam Psychiatric exam: Normal Affect, Normal Mood - Skin Skin Exam: Normal Color Discharge Plan - Discharge Medications Prescriptions: Atorvastatin [Lipitor] 10 mg PO HS 30 Days #30 tab Azithromycin [Zithromax] 250 mg PO DAILY #2 tab Furosemide [Lasix] 40 mg PO DAILY 30 Days #30 tab Liraglutide [Victoza 3-Amos] 0.6 mg SQ DAILY #42 pen.injctr Lisinopril 2.5 mg PO DAILY 30 Days #30 tab metFORMIN [glucOPHAGE] 500 mg PO BID 30 Days #60 tab Metoprolol Succinate XL [Toprol XL] 12.5 mg PO DAILY 30 Days #30 tab - Follow Up Plan Condition: STABLE Disposition: HOME/ ROUTINE Instructions: Heart Healthy Diet, Diabetes Exchange Diet, Azithromycin (Systemic), Heart Failure, Adult (DC), Liraglutide, Diabetes Diet , Chest Pain (DC) Additional Instructions: Pt is to be d/c home on the following medications Atorvastatin [Lipitor] 10 mg PO HS 30 Days #30 tab Azithromycin [Zithromax] 250 mg PO DAILY #2 tab Furosemide [Lasix] 40 mg PO DAILY 30 Days #30 tab Lisinopril 2.5 mg PO DAILY 30 Days #30 tab metFORMIN [glucOPHAGE] 500 mg PO BID 30 Days #60 tab Metoprolol Succinate XL [Toprol XL] 12.5 mg PO DAILY 30 Days #30 tab Pt is to stop taking Amryl You are to please start taking: Liraglutide [Victoza 3-Maos] 0.6 mg SQ DAILY #42 pen.injctr week 1: 1 pen daily week 2: 2 pens daily week 3: 3 pens daily Please follow up with Dr Rivera in office within 7 days Please follow up with Dr Chaudhry in office within 7 days [facility] PGY1 Referrals: Baljinder Chaudhry MD [Staff Provider] - David Rivera Jr., MD [Medical Doctor] -
--- NOTE | 2018-09-12 22:10 | CARD ---
APPROVED REPORT Date of service: 09/11/2018 EXAM: Two-dimensional and M-mode echocardiogram with Doppler and color Doppler. Other Information Quality : GoodRhythm : INDICATION Dyspnea Chest Pain Congestive Heart Failure RISK FACTORS Hypertension Hyperlipidemia Diabetes 2D DIMENSIONS IVSd0.9 (0.7-1.1cm)LVDd6.2 (3.9-5.9cm) PWd0.9 (0.7-1.1cm)LA Hyofzb323 (18-58mL) LVDs5.8 (2.5-4.0cm)FS (%) 5.8 % LVEF (%)12.8 (>50%)LVEF (Vicente's)10.84 % IVC0.00 cm M-Mode DIMENSIONS RVDd2.15 (2.1-3.2cm)Left Atrium (MM)5.18 (2.5-4.0cm) IVSd0.81 (0.7-1.1cm)Aortic Root3.51 (2.2-3.7cm) LVDd6.63 (4.0-5.6cm)Aortic Cusp Exc.1.94 (1.5-2.0cm) PWd1.02 (0.7-1.1cm)FS (%) 12 % LVDs5.82 (2.0-3.8cm)TAPSE13.60 cm Aortic Valve AI P 1/2 Riin020yd Mitral Valve MV E Ndkbatid091.3cm/sMV A Qrslstpc693.6cm/sE/A ratio1.8 OZDD573.59 cm/s TDI Lateral E' Peak V3.12cm/sMedial E' Peak V2.35cm/sE/Lateral E'68.7 E/Medial E'91.2 Tricuspid Valve TR Peak Frkgffnz707or/sTR Peak Gr.[id number] LEFT VENTRICLE The Left Ventricle is mildly dilated. There is normal left ventricular wall thickness. The systolic function is severely impaired. The left ventricular diastolic function is normal. RIGHT VENTRICLE The right ventricle is normal size. ATRIA The left atrium is moderately dilated. The right atrium size is normal. AORTIC VALVE There is mild aortic regurgitation. MITRAL VALVE Mitral regurgitation is severe. TRICUSPID VALVE There is severe tricuspid regurgitation. <Conclusion> Severe LV systolic dysfunction. Dilated LV and LA. Mild AR. Severe TR. Severe MR.
--- NOTE | 2018-09-13 16:54 | CARD ---
APPROVED REPORT Date of service: 09/12/2018 Protocol: LEXISCAN Test Type: LEXISCAN STRESS Test Indications: CHF Medical History: CP Target HR: 159 bpm Resting ECG: NSR W/ NS ST T CHANGES Resting Heart Rate: 95 bpm Resting Blood Pressure: 134/80mmHg submaximum (85%): 135 bpm TEST SUMMARY PREINFSNHYPERV.10:520.00..634350/80.2. INFUSIONDOSE 100:300.00.01.096/.1. [id number]/80.6. PROCEDURE Pharmacologic stress testing was performed using 0.4mg per 5ml of regadenoson given intravenously over 7-10 seconds. POST EXERCISE Reason for Termination: Protocol Completed Target HR: No Max HR: 96 bpm 64% of Maximum Predicted HR: 159 bpm Exercise duration: 00:30 min:sec, 0 Stage Exercise capacity: 1.0METs Max Blood Pressure: 134/80mmHg Blood Pressure response to exercise: normal resting BP - appropriate response Heart Rate response to exercise: appropriate Chest Pain: No, none Angina index: 0 Arrhythmia: No, none ST Change: No, none Deviation: 0 mm INTERPRETATION Stress EKG Conclusion: NEGATIVE LEXISCAN STRESS TEST RARE VPB'S NORMAL BP RESPONSE TO LEXISCAN NUCLEAR STUDIES TO BE READ SEPARATELY EXAM: Myocardial Perfusion STRESS/REST Imaging Protocol The imaging protocol used to acquire images was Stress Tc-99m/rest Tc-99m 1 day Stress Spect myocardial perfusion imaging was performed in supine position 45 minutes following the injection of 13.2 mCi of Tc-99 Myoview. Gated Rest Spect was performed 46 minutes after intravenous 31 mCi Tc-99 Myoview injection. The images were gated to evaluate regional wall motion and calculate ventricular ejection fraction.Images were reconstructed using backfilter projection method in short horizontal and verticle long axis. Spect slices were generated. RESTING DATA XBU466.68rgSL2.00L/min RWB648.00mlMyocardial Faqi853.00g Av. Heart Rate91.00bpm EF25.00% STRESS DATA NIB993.77ggTU5.40L/min CGS087.00mlMyocardial Rmsf029.00g EF23.00% Regional WT score at stress:3.00 Regional WM score at stress:3.00 Summed WT score at stress:49.00 Av. Heart Rate90.00bpmSummed WM score at stress:46.00 LV Perf. Quant 17 Seg. SSS17.00 17 Seg. SRS9.00 17 Seg. SDS9.00 Stress Defect Extent (% LAD)42.50Rest Defect Extent (% LAD)19.40Rev. Defect Extent (% LAD)31.90 Stress Defect Extent (% LCX)46.30Rest Defect Extent (% LCX)2.50Rev. Defect Extent (% LCX)32.50 Stress Defect Extent (% RCA)6.70Rest Defect Extent (% RCA)0.00Rev. Defect Extent (% RCA)4.40 Stress Defect Extent (% ASHLEY)38.70Rest Defect Extent (% ASHLEY)13.70Rev. Defect Extent (% ASHLEY)25.70 IMPRESSION Abnormal Myocardial Perfusion exercise stress study Left Ventricle LV Size/Shape: The Left Ventricle is moderately dilated. LV Function:Left ventricle systolic function is severely impaired The Ejection Fraction is <25%. Regional Wall Motion:There is severe global hypokinesis of the left ventricle. Metabolism/Perfusion Defects: There is moderate stress-induced ischemia noted in the apical area. Conclusion 1. There is moderate stress-induced ischemia noted in the apical area. 2. Left ventricle systolic function is severely impaired 3. The Ejection Fraction is <25%.
== END 2018-09-12 15:01 | disposition home or self-care (01) ==
LOC: C.ER 05:49 → C.9E 08:59 → C.6T 12:13
PROVIDERS: ADMIT Internal Medicine; ATTEND Internal Medicine
DX: R07.9 Chest pain, unspecified (principal); E10.65 Type 1 diabetes mellitus with hyperglycemia; E78.00 Pure hypercholesterolemia, unspecified; K21.9 Gastro-esophageal reflux disease without esophagitis; E78.5 Hyperlipidemia, unspecified; I11.0 Hypertensive heart disease with heart failure; I50.9 Heart failure, unspecified; Z79.4 Long term (current) use of insulin; Z82.49 Family history of ischemic heart disease and other diseases of the circulatory system
CPT/HCPCS: 36415; 71046; 78452; 80053; 80061; 82948; 83036; 83735; 83880; 84100; 84443; 84484; 85025; 85610; 85730; 93005; 93017; 93306; 96372; 96374; 99285; A9502; G0378; J1644; J1940; J2785